=== PATIENT | male | born 1935 | race Caucasian/White ===

== ENCOUNTER → 2016-03-16 | Outpatient (CLI) | payer BC ==
[~2016-03-16] MED LIST: ADVIN25/60 INH; ALBU2SYP9 INH; ALBUAER INH; ATOR10TA82 PO; BICA50TA2 PO; CETI10TA84 PO; CLR10 PO; CYAN1CAP3 PO; DONE5TAB9 PO; DXY100 PO; FINA5TAB PO; FLUT0.15 NAE; FRS/40 PO; IPRASOL4 INH; LEUP30IN3 IM; MAGN30TA4 PO; MAGN400T6 PO; MCRK20 PO; METH1CHW PO; METO2.5T PO; METO25TA3 PO; MIRT15TA2 PO; OPTIRAY 320 IV PRN; OXYC-57 PO; PANT40TA PO; POTA1POW PO; POTA20TA16 PO; PRED10TA PO; PROP150T PO; SPRIN INH; SYMIN160 INH; TAMS0.4C38 PO; THIA100T11 PO; VTMD1000 PO; [UNRECOGNIZED DRUG - CODE] PO
--- NOTE | 2016-03-16 19:22 | DIAGNOSTIC IMAGING REPORT ---
CT OF THE CHEST WITH IV CONTRAST CLINICAL HISTORY: Right middle lobe nodule. Metastatic prostate cancer. COMPARISON STUDY: PET/CT December 07, 2015 and bone scan February 08, 2016 TECHNIQUE: Following IV administration of 93 mL of Optiray-320, helical axial images of the chest were obtained. Images were viewed in the axial, sagittal and coronal planes. IV contrast was administered without complication. CT DOSE: 886.79 mGy.cm FINDINGS: No enlarged axillary, mediastinal or hilar lymph nodes are present. The heart is mildly enlarged. The central airways are patent. There is diffuse bronchial wall thickening. There is moderate emphysema. Note is made of a 1.5 cm irregular predominantly linear right middle lobe nodule shown on axial image 171 of 346. This area was not well visualized on the provided CT images from the PET/CT of December 09, 2015. There has been interval development of a 2.6 cm focus of suspected fluid within the medial basilar segment of the left lower lobe. Left upper lobe subpleural opacity likely reflects atelectasis or scarring. There is mild diffuse bronchial wall thickening. No pneumothorax or pleural effusion is present. Note is again made of the destructive lesion involving the posterior elements at the T4 and T5 levels. Evaluation for treatment response difficult by CT. There is increased sclerosis of the bones. A healing left ninth rib fracture is noted. A gallstone is noted within the gallbladder. IMPRESSION: 1. Redemonstration of the destructive lesion involving the posterior elements at the T4 and T5 levels suggestive of metastatic disease. Evaluation for treatment response by CT is difficult although there is increased sclerosis of the affected bones. 2. Healing posterior left ninth rib fracture. 3. 1.5 cm irregular right middle lobe nodule which is predominantly linear. This is indeterminate. A chest CT in 6 months to ensure stability is recommended. 4. Moderate emphysema. 5. Interval development of a focus of fluid within the left lower lobe is likely post infectious. This can be assessed on subsequent exam. Electronically signed by: Reyes Oreilly M.D. 03/16/2016 7:21 PM Dictated Date/Time: 03/16/2016 10:14 AM
== END | disposition home or self-care (01) ==
LOC: C.CTS 08:27
PROVIDERS: ATTEND Internal Medicine Hematology & Oncology
DX: C61 Malignant neoplasm of prostate (principal); M89.9 Disorder of bone, unspecified; M84.48XA Pathological fracture, other site, initial encounter for fracture; R91.1 Solitary pulmonary nodule; J43.9 Emphysema, unspecified; R91.8 Other nonspecific abnormal finding of lung field

== ENCOUNTER 2016-08-04 18:48 | Inpatient (IN) | payer BC, OTHER ==
[~2016-08-04] VITALS: Ht 175.3 cm; Wt 112.4 kg
[~2016-08-04 18:48] MED LIST changes: -CLR10 PO; -CYAN1CAP3 PO; -DXY100 PO; -FLUT0.15 NAE; -LEUP30IN3 IM; -MAGN30TA4 PO; -MCRK20 PO; -METO2.5T PO; -MIRT15TA2 PO; -OPTIRAY 320 IV PRN; -OXYC-57 PO; -POTA20TA16 PO; -PRED10TA PO; -PROP150T PO; -SPRIN INH; -THIA100T11 PO; -VTMD1000 PO
[2016-08-04] MEDS ORDERED: ONDANSETRON INJ 2 MG/ML 2 ML VIAL IV PRN (21:00)
[2016-08-04] MEDS ORDERED: POLYETHYLENE (MIRALAX) 17 GM PACK PO PRN ×2 (21:00)
[2016-08-04] MEDS ORDERED: MAGNESIUM HYDROXIDE SUSP 30 ML UDC PO PRN (21:00)
[2016-08-04] MEDS ORDERED: HYDROmorphone INJ 1 MG/ML SYR IV PRN (21:00)
[2016-08-04] MEDS ORDERED: ACETAMINOPHEN 325 MG TAB PO PRN (21:00)
[2016-08-04] MEDS ORDERED: ALUMINUM/MAGNESIUM/SIMETH (MAALOX MAX) 30 ML UDC PO PRN (21:00)
[2016-08-04 21:22] VITALS: BP 124/60; PULSE 59; TEMP 36.5; O2SAT 92
[2016-08-04 21:23] VITALS: BMI 37.0
[2016-08-04 23:21] VITALS: BP 99/53; PULSE 66; TEMP 36.3; O2SAT 96
[2016-08-05] VITALS (8 sets, daily range): BP systolic 84–121; BP diastolic 51–70; PULSE 54–79; TEMP 36.3–36.8; O2SAT 91–96; BMI 37.0
--- NOTE | 2016-08-05 06:39 | History and Physical ---
History & Physical Date & Time of Service: August 05, 2016 at 06:18 Chief Complaint: Intractable Back Pain, Mestatic Prostate Ca, Primary Care Physician: Josué Jung D.O. History of Present Illness Source: patient, hospital records, other 81 y/o M Hx metastatic prostate CA , chronic back pain, COPD, PAF, DM. 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 Pt presented to [facility] earlier in the day complaining of progressive lower back pain and resultant gait impairment. He does not describe acute weakness or numbness. A Lumbar MRI was obtained revealing L3-4, L4-5, L5-S1 stenosis in addition to a possible pars fracture at L5. The pts MD and oncologist were contacted and requested that he be transferred to [facility] for further evaluation. He denies CP, SOB, N/V, fevers. Past Medical/Surgical History 1) PAF 2) C diff 3) CHF - no details on record Social History Smoking Status: Former Smoker Multi-Drug Resistant Organisms History of MDRO: No Allergies Coded Allergies: No Known Allergies (Verified , 04/24/02) Home Medications Scheduled Albuterol Sulf (Ventolin), 1 APPLN INH QID Atorvastatin (Lipitor), 1 TAB PO HS Bicalutamide (Casodex), 1 TAB PO DAILY Budesonide/Formoterol Fumarate (Symbicort 160/4.5 Inhaler ), 2 PUFFS INH BID Cetirizine (Zyrtec), 10 MG PO DAILY Donepezil HCl (Aricept), 1 TAB PO HS Finasteride (Proscar), 1 TAB PO DAILY Fluticasone Prop/Salmeterol (Advair Diskus 250/50 60 Dose), 1 PUFFS INH BID Furosemide (Lasix), 40 MG PO DAILY Ipratropium-Albuterol (Duoneb), 1 TREATMENT INH Q4H Magnesium Oxide (Mag-Ox), 400 MG PO BID Methylcobalamin (Y88-[id number]), 1 CAP PO DAILY Metoprolol Succ (Toprol Xl) (Toprol-Xl), 25 MG PO DAILY Pantoprazole (Protonix), 40 MG PO DAILY Potassium Chloride Pwd (Klor-Con Pwd), 1 TAB PO DAILY Propafenone Hcl (Rythmol), 150 MG PO TID Tamsulosin Hcl (Flomax), 1 CAP PO DAILY Scheduled PRN Albuterol Sulfate (Proventil Hfa), 2 PUFF INH TID PRN for Shortness of Breath Review of Systems Constitutional: No chills, No fever, No sweats Eyes: No eye pain, No worsening of vision ENT: No hearing loss, No nasal symptoms, No unusual epistaxis Respiratory: + shortness of breath (chronic), No cough, No sputum, No wheezing Cardiovascular: No PND, No chest pain, No orthopnea Abdomen: No nausea, No pain, No vomiting Musculoskeletal: + joint pain, + muscle pain, + problem reported (moderate to severe LBP) Genitourinary - Male: No dysuria, No hematuria, No urinary frequency, No urinary urgency Neurologic: No memory loss, No paralysis, No weakness Psychiatric: No depression symptoms Endocrine: No fatigue Hematologic / Lymphatic: No abnormal bleeding/bruising Integumentary: No rash Allergic / Immunologic: No environmental allergies Physical Exam Vital Signs Date Time Temp Pulse Resp B/P Pulse Ox O2 Delivery O2 Flow Rate FiO2 08/05/16 04:15 36.5 61 20 103/57 96 Room Air 08/05/16 01:44 36.3 66 18 99/53 96 Nasal Cannula 4.0 08/04/16 23:21 36.3 66 18 99/53 96 Nasal Cannula 4.0 08/04/16 21:22 36.5 59 20 124/60 92 Nasal Cannula 4.0 General Appearance: WD/WN, no apparent distress Head: normocephalic, atraumatic Eyes: normal inspection, PERRL, EOMI ENT: normal ENT inspection, pharynx normal Neck: supple, no JVD Respiratory/Chest: chest non-tender, no respiratory distress, no accessory muscle use, + decreased breath sounds Cardiovascular: regular rate, rhythm, + systolic murmur Abdomen/GI: normal bowel sounds, non tender, soft Back: + pertinent finding (No significant pain to palpation - ROM limited by pain ) 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 Pt presented to [facility] earlier in the day complaining of progressive lower back pain and resultant gait impairment. He does not describe acute weakness or numbness. A Lumbar MRI was obtained revealing L3-4, L4-5, L5-S1 stenosis in addition to a possible pars fracture at L5. The pts MD and oncologist were contacted and requested that he be transferred to [facility] for further evaluation. He denies CP, SOB, N/V, fevers. 1) Worsening back pain - likely related to CA - Pt will be treated symptomatically and we will consult his oncologist reg additional treatment options. He may need an ortho consult or transfer to rehab. Would request PT following evaluation. 2) Met prostate CA - was previously on Casodex and Xgeva - H/O consulted 3) Hx CHF - currently euvolemic - cont B sonia , Lasix 4) PAF - sinus rhythm on arrival - cont Propafenone 5) COPD - no evidence of acute exacerbation - cont prescribed inhalers Full code - Heparin prophylaxis Total time for this admit including review of outside records, kabs, meds, imaging - discussion with pt - 38 min Level of Care Med/Surg Advanced Directives Existing Living Will: Yes Existing Power of Customer Engagement Manager: Yes Resuscitation Status FULL RESUSCITATION VTE Prophylaxis VTE Risk Assessment Done? Y/N: Yes Risk Level: Moderate Given or contraindicated: Unfractionated heparin SQ
[2016-08-05] MEDS ORDERED: POTASSIUM CHLORIDE 20 MEQ TABCR PO SCH (08:00)
[2016-08-05] MEDS ORDERED: FLUTICASONE/SALMETEROL 250/50 (ADVAIR) 14 PUFF/1 INHALER INH SCH (08:00)
[2016-08-05 08:25] LABS: HEMATOCRIT 36.2 % (42-52); MEAN CELL VOLUME 88.9 fL (80-100); MEAN CORPUSCULAR HEMOGLOBIN 30.7 pg (25-34); MEAN CORPUSCULAR HGB CONC 34.5 g/dl (32-36); MEAN PLATELET VOLUME 10.4 fL (7.4-10.4); PLATELET COUNT 129 K/uL (130-400); RED BLOOD COUNT 4.07 M/uL (4.7-6.1); WHITE BLOOD COUNT 8.57 K/uL (4.8-10.8)
[2016-08-05 08:40] LABS: INR 1.1 (0.9-1.1); PARTIAL THROMBOPLASTIN RATIO 1.2; PROTHROMBIN TIME (PATIENT) 11.4 SECONDS (9.0-12.0)
[2016-08-05] MEDS: FINASTERIDE 5 MG TAB PO SCH (08:48)
[2016-08-05] MEDS: CETIRIZINE HCL 10 MG TAB PO SCH (08:49)
[2016-08-05] MEDS: PANTOprazole SOD 40 MG TAB PO SCH (08:49)
[2016-08-05] MEDS: POTASSIUM CHLORIDE PWD 20 MEQ PACK PO SCH (08:50)
[2016-08-05] MEDS: FUROSEMIDE 40 MG TAB PO SCH (08:50)
[2016-08-05] MEDS: MAGNESIUM OXIDE 400 MG TAB PO SCH ×2 (08:50→20:39)
[2016-08-05] MEDS: TAMSULOSIN HCL 0.4 MG CAP PO SCH (08:57)
[2016-08-05] MEDS: BICALUTAMIDE 50 MG TAB PO SCH (08:57)
[2016-08-05] MEDS: METOPROLOL SUCC 25MG EXT REL TAB PO SCH (08:57)
[2016-08-05] MEDS: BUDESONIDE/FORMOTEROL FUMARATE 160/4.5 60 PUFFS/INHALER INH SCH ×2 (09:01→20:38)
[2016-08-05] MEDS: PROPAFENONE HCL 150 MG TAB PO SCH ×3 (09:01→20:38)
[2016-08-05] MEDS ORDERED: CETIRIZINE HCL 10 MG TAB PO ONE (09:15)
--- NOTE | 2016-08-05 10:40 | Progress Note ---
Subjective Date of Service: August 05, 2016. Subjective Pt evaluation today including: conversation w/ patient, physical exam, chart review, lab review, review of studies, review of inpatient medication list Sitting up in chair, eating breakfast, reported the pain has been significantly better, the pain is 0 out of 10, no other complaint, no diarrhea constipation Review of Systems Constitutional: No chills, No fatigue, No fever, No problem reported, No sweats , No weakness, No weight loss Eyes: No diplopia, No discharge, No eye pain, No redness, No worsening of vision ENT: No dental problems, No hearing loss, No nasal symptoms, No sore throat, No tinnitus, No trouble swallowing, No unusual epistaxis Respiratory: No cough, No dyspnea at rest, No dyspnea on exertion, No hemoptysis, No shortness of breath, No sputum, No wheezing Cardiac: No PND, No chest pain, No claudication, No edema, No orthopnea, No palpitations Abdomen: No constipation, No diarrhea, No nausea, No pain, No vomiting Musculoskeletal: No calf pain, No joint pain, No muscle pain, No swelling Male : No dysuria, No hematuria, No incontinence, No nocturia more than once/ night, No slowing stream, No urinary frequency Neurologic: No balance problems, No memory loss, No numbness/tingling, No paralysis, No vertigo, No weakness Psychiatric: No anhedonism, No anxiety, No depression symptoms, No insomnia, No substance abuse Heme: No abnormal bleeding/bruising, No clotting problems, No night sweats, No swollen lymph nodes Endo: No excessive thirst, No excessive urination, No fatigue Skin: No bleeding, No color change, No itch, No new/changing skin lesions, No rash Objective Vital Signs Date Time Temp Pulse Resp B/P Pulse Ox O2 Delivery O2 Flow Rate FiO2 08/05/16 08:45 79 105/70 08/05/16 07:14 36.6 54 20 92/60 94 Nasal Cannula 2.0 08/05/16 04:15 36.5 61 20 103/57 96 Room Air 08/05/16 01:44 36.3 66 18 99/53 96 Nasal Cannula 4.0 08/04/16 23:21 36.3 66 18 99/53 96 Nasal Cannula 4.0 08/04/16 21:22 36.5 59 20 124/60 92 Nasal Cannula 4.0 Physical Exam General Appearance: WD/WN, no apparent distress, + obese, + pertinent finding ( pleasant and conversational) Eyes: normal inspection, PERRL, EOMI, sclerae normal ENT: normal ENT inspection, hearing grossly normal, pharynx normal Neck: supple, no adenopathy, thyroid normal, no JVD, no carotid bruits, trachea midline Respiratory/Chest: chest non-tender, normal breath sounds, no respiratory distress, no accessory muscle use, + decreased breath sounds Cardiovascular: regular rate, rhythm, no edema, no gallop, no JVD, no murmur Abdomen: normal bowel sounds, non tender, soft, no organomegaly, no pulsatile mass Extremities: non-tender, normal inspection, no pedal edema, no calf tenderness , normal capillary refill, pelvis stable, + pertinent finding (low back spine was was tender in press) 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, no motor/sensory deficits, alert, normal mood/affect, oriented x 3 Skin: normal color, warm/dry, no rash Lymphatic: no adenopathy Laboratory Results Last 24 Hours Test 08/05/16 08:20 White Blood Count 8.57 K/uL Red Blood Count 4.07 M/uL Hemoglobin 12.5 g/dL Hematocrit 36.2 % Mean Corpuscular Volume 88.9 fL Mean Corpuscular Hemoglobin 30.7 pg Mean Corpuscular Hemoglobin Concent 34.5 g/dl RDW Standard Deviation 39.1 fL RDW Coefficient of Variation 12.1 % Platelet Count 129 K/uL Mean Platelet Volume 10.4 fL Prothrombin Time 11.4 SECONDS Prothromb Time International Ratio 1.1 Activated Partial Thromboplast Time 32.2 SECONDS Partial Thromboplastin Ratio 1.2 Assessment and Plan 81 y/o M Pt transferred from [facility] because of A Lumbar MRI was obtained revealing L3-4, L4-5, L5-S1 stenosis in addition to a possible pars fracture at L5. The pts MD and oncologist were contacted and requested that he be transferred to [facility] for further evaluation. Lower back pain with L3-4, L4-5, L5-S1 stenosis in addition to a possible pars fracture at L5, and possible from prostate cancer metastasis Significant improving today, we'll continue pain control PT OT Patient did not report any weakness or numbness. Will follow-up oncologist Ortho consult if needed Continue PT OT Possible need rehabilitation prostate CA -metastasis previously on Casodex and Xgeva We'll follow a hematology oncology consultation Hx metastatic prostate CA , chronic back pain, COPD, PAF: Stable we'll continue current care Diabetic we'll continue home medication, check HbA1c, insulin sliding scale, diabetic diet Full code Heparin prophylaxis Continued [facility] stay due to: multiple IV medications needed Discharge planning: uncertain
--- NOTE | 2016-08-05 10:50 | Oncology Consultation ---
Oncology/Heme Consultation Date of Consultation: August 05, 2016. Attending Physician: Gilson Lara MD, PhD Reason for Consultation: History of prostate cancer History of Present Illness Mr. Lizama is a 81-year-old gentleman with a history of biopsy-proven bony metastatic disease, prostate adenocarcinoma. He has been treated with complete androgen blockade. He presented last evening with bone pain. He demonstrates the pain to be more in the lower thoracic area. An MRI done at [facility] of the lumbar spine showed degenerative changes primarily. No films have been done of the thoracic spine. He denies any incontinence. He has good strength in his lower extremities. I should note that his PSAs have been drifting down since the initiation of the androgen blockade. He states that this pain became rather severe and happened suddenly yesterday. He has not had back pain prior to this. He initially presented in 2014 with the lower urinary tract symptoms and a prostate nodule was found. Soon after that he sustained a fall and was found to have a bone lesion in the thoracic spine area. A biopsy in December 2015 revealed metastatic poorly differentiated adenocarcinoma consistent with a prostate primary and he started complete androgen blockade in January 2016. 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 Social History Smoking Status: Former Smoker Allergies Coded Allergies: No Known Allergies (Verified , 04/24/02) Home Medications Scheduled Albuterol Sulf (Ventolin), 1 APPLN INH QID Atorvastatin (Lipitor), 1 TAB PO HS Bicalutamide (Casodex), 1 TAB PO DAILY Budesonide/Formoterol Fumarate (Symbicort 160/4.5 Inhaler ), 2 PUFFS INH BID Cetirizine (Zyrtec), 10 MG PO DAILY Donepezil HCl (Aricept), 1 TAB PO HS Finasteride (Proscar), 1 TAB PO DAILY Fluticasone Prop/Salmeterol (Advair Diskus 250/50 60 Dose), 1 PUFFS INH BID Furosemide (Lasix), 40 MG PO DAILY Ipratropium-Albuterol (Duoneb), 1 TREATMENT INH Q4H Magnesium Oxide (Mag-Ox), 400 MG PO BID Methylcobalamin (I83-[id number]), 1 CAP PO DAILY Metoprolol Succ (Toprol Xl) (Toprol-Xl), 25 MG PO DAILY Pantoprazole (Protonix), 40 MG PO DAILY Potassium Chloride Pwd (Klor-Con Pwd), 1 TAB PO DAILY Propafenone Hcl (Rythmol), 150 MG PO TID Tamsulosin Hcl (Flomax), 1 CAP PO DAILY Scheduled PRN Albuterol Sulfate (Proventil Hfa), 2 PUFF INH TID PRN for Shortness of Breath Current Inpatient Medications Current Inpatient Medications Medications (Trade) Dose Ordered Sig/Reji Route Start Time Stop Time Status Last Admin Dose Admin Acetaminophen (Tylenol Tab) 650 mg Q4H PRN PO 08/04/16 21:00 09/03/16 20:59 Al Hydrox/Mg Hydrox/Simethicone (Maalox Max Susp) 15 ml Q4H PRN PO 08/04/16 21:00 09/03/16 20:59 Magnesium Hydroxide (Milk Of Magnesia Susp) 30 ml Q6H PRN PO 08/04/16 21:00 09/03/16 20:59 Ondansetron HCl (Zofran Inj) 4 mg Q6H PRN IV 08/04/16 21:00 09/03/16 20:59 Hydromorphone HCl (Dilaudid Inj) 0.5 mg Q2H PRN IV 08/04/16 21:00 08/18/16 20:59 Polyethylene (Miralax Powder Packet) 17 gm DAILY PRN PO 08/04/16 21:00 09/03/16 20:59 Atorvastatin Calcium (Lipitor Tab) 10 mg HS PO 08/05/16 21:00 09/04/16 20:59 Bicalutamide (Casodex Tab) 50 mg DAILY PO 08/05/16 08:00 09/04/16 07:59 08/05/16 08:57 50 MG Budesonide/ Formoterol Fumarate (Symbicort 160/ 4.5 Inh) 2 puffs BID INH 08/05/16 08:00 09/04/16 07:59 08/05/16 09:01 2 PUFFS Cetirizine HCl (zyrTEC TAB) 10 mg DAILY PO 08/05/16 08:00 09/04/16 07:59 08/05/16 08:49 10 MG Donepezil HCl (Aricept Tab) 5 mg HS PO 08/05/16 21:00 09/04/16 20:59 Finasteride (Proscar Tab) 5 mg DAILY PO 08/05/16 08:00 09/04/16 07:59 08/05/16 08:48 5 MG Furosemide (Lasix Tab) 40 mg DAILY PO 08/05/16 08:00 09/04/16 07:59 08/05/16 08:50 40 MG Magnesium Oxide (Mag-Ox Tab) 400 mg BID PO 08/05/16 08:00 09/04/16 07:59 08/05/16 08:50 400 MG Metoprolol Succinate (Toprol Xl Tab) 25 mg DAILY PO 08/05/16 08:00 09/04/16 07:59 08/05/16 08:57 25 MG Pantoprazole Sodium (Protonix Tab) 40 mg DAILY PO 08/05/16 08:00 09/04/16 07:59 08/05/16 08:49 40 MG Potassium Chloride (Klor-Con Pwd) 20 meq DAILY PO 08/05/16 08:00 09/04/16 07:59 08/05/16 08:50 20 MEQ Tamsulosin HCl (Flomax Cap) 0.4 mg DAILY PO 08/05/16 08:00 09/04/16 07:59 08/05/16 08:57 0.4 MG Propafenone HCl (Rythmol Tab) 150 mg TID PO 08/05/16 08:00 09/04/16 07:59 08/05/16 09:01 150 MG Heparin Sodium (Porcine) (Heparin Sq 5000 Unit/0.5ml) 5,000 unit Q8 SQ 08/05/16 14:00 09/04/16 13:59 Fluticasone Propionate (Flonase Nasal Joice) 1 sprays Q12 NA 08/05/16 21:00 09/04/16 20:59 Review of Systems Constitutional: Negative for weight loss, night sweats, or fever Eyes: Negative for event change of vision ENT: Negative for epistaxis, nasal discharge, sore throat, or deafness Cardiovascular: Negative for chest pain, palpitations, dizziness, diaphoresis Respiratory: Negative for new shortness of breath,hemoptysis, or purulent cough Gastrointestinal: Negative for diarrhea, hematemesis, melena, nausea, vomiting , or dyspepsia Integumentary (skin): Negative for rash or jaundice discoloration Genitourinary: Negative for urinary frequency, hematuria, or dysuria Neurological: Negative for weakness, seizure activity, headache, or dizziness Lymphatic/Hematologic: Negative for petechiae, bleeding or new adenopathy Musculoskeletal: Positive for back pain and primarily the lower thoracic area radiating anteriorly around T7, T8 Allergic/Immunologic: Negative for unusual rash or pruritis. Physical Exam Date Time Temp Pulse Resp B/P Pulse Ox O2 Delivery O2 Flow Rate FiO2 08/05/16 08:45 79 105/70 08/05/16 07:14 36.6 54 20 92/60 94 Nasal Cannula 2.0 08/05/16 04:15 36.5 61 20 103/57 96 Room Air 08/05/16 01:44 36.3 66 18 99/53 96 Nasal Cannula 4.0 08/04/16 23:21 36.3 66 18 99/53 96 Nasal Cannula 4.0 08/04/16 21:22 36.5 59 20 124/60 92 Nasal Cannula 4.0 Constitutional: vitals are stable. Eyes: Eyes are MIKAL EOMI without conjuctival erythema or icterus. ENT: External examination was negative for masses. Neck: Negative for masses or palpable thyromegaly Respiratory: Lung sounds were generally clear bilaterally Cardiovascular: Heart was RRR without significant murmur, gallops aoe rubs Gastrointestinal: No palpable hepatic or splenomegaly. The abdomen was soft with normal bowel sounds. Lymphatic system: there was no palpable peripheral lymphadenopathy Musculoskeletal System: The musculoskeletal system seemed concordant with age. Skin: The skin was negative for jaundice. Some skin changes distally in the lower areas consistent with chronic vascular disease Neurologic exam: The exam was negative for any focal findings. Deep tendon reflexes were equal and symmetrical. Psychiatric exam: Was essentially negative with normal mood and effect. Extremities: Negative for edema or erythema Laboratory Results Last 24 Hours Test 08/05/16 08:20 White Blood Count 8.57 K/uL Red Blood Count 4.07 M/uL Hemoglobin 12.5 g/dL Hematocrit 36.2 % Mean Corpuscular Volume 88.9 fL Mean Corpuscular Hemoglobin 30.7 pg Mean Corpuscular Hemoglobin Concent 34.5 g/dl RDW Standard Deviation 39.1 fL RDW Coefficient of Variation 12.1 % Platelet Count 129 K/uL Mean Platelet Volume 10.4 fL Prothrombin Time 11.4 SECONDS Prothromb Time International Ratio 1.1 Activated Partial Thromboplast Time 32.2 SECONDS Partial Thromboplastin Ratio 1.2 Assessment & Plan Metastatic prostate carcinoma with metastatic disease to bone undergoing therapy with androgen blockade. Now presents with rather severe sudden lower thoracic bone pain. Blood work is acceptable PSA will need to be updated. I would suggest that an MRI be done of his thoracic spine. We'll follow along with you. He appears rather comfortable right now. Neurologically he appears intact.
[2016-08-05] MEDS ORDERED: OXYCODONE/ACETAMINOPHEN 5-325 TAB ONE (11:54)
[2016-08-05] MEDS ORDERED: NURSING VERBAL MED ORDER ONE ×3 (12:00→19:30)
[2016-08-05] MEDS ORDERED: OXYCODONE/ACETAMINOPHEN 5-325 TAB PO PRN (12:00)
[2016-08-05 12:42] LABS: BUN/CREATININE RATIO 19.8 (10-20); CALCIUM 8.4 mg/dl (8.5-10.1); CREATININE 1.5 mg/dl (0.60-1.40); POTASSIUM 3.1 mmol/L (3.5-5.1)
[2016-08-05] MEDS: HEPARIN SOD 5000 UNIT/0.5 ML CARP SQ SCH ×2 (12:58→21:35)
[2016-08-05] MEDS ORDERED: POTASSIUM CHLORIDE 20 MEQ TABCR PO ONE (20:15)
--- NOTE | 2016-08-05 20:17 | DIAGNOSTIC IMAGING REPORT ---
MRI OF THE CERVICAL SPINE COMBO CLINICAL HISTORY: Metastatic prostate cancer. Back pain. COMPARISON STUDY: CT scan of the chest dated 03/16/2016. TECHNIQUE: MRI of the thoracic spine is performed utilizing various T1 and T2-weighted sequences in the axial and sagittal planes. Contrast-enhanced sequences are acquired following the IV administration of 10 mL of Gadavist. FINDINGS: Marrow signal intensity is markedly heterogeneous. Vertebral body height and alignment are maintained throughout the thoracic spine. There is no MRI evidence of acute fracture. There is unchanged appearance of a large metastatic lesion within the spinous process of T4. This involves the lamina as well as the left transverse process. There is no soft tissue component identified encroaching upon the central canal. There is an additional lesion versus a Schmorl's node seen within the superior endplate of T4. Additional small lesions are present throughout the spine. Lesions are clearly seen within the bodies of C5, T6, T7, T9, T10, T11, T12, and L1. A lesion is also seen within the spinous process of T1. Several posterior rib lesions are identified. Multilevel degenerative disc desiccation and loss of height are identified. There are numerous tiny posterior disc bulges. No large disc herniation is seen and there is no significant acquired compromise of the central canal. No high-grade neural foraminal stenosis is identified. The thoracic spinal cord is normal in morphology and signal intensity. The conus medullaris terminates at the level of L1. No abnormal cord enhancement is identified. The lung parenchyma is grossly clear but not well assessed MRI. The paraspinous soft tissues are within normal limits noting fatty atrophy of the paraspinous musculature. IMPRESSION: 1. Multifocal osseous metastatic disease is identified and detailed above. This has likely not significantly changed from the 03/16/[address] More lesions are identified by MRI, likely due to the increased sensitivity of this modality. 2. There is no clear MRI evidence of pathologic fracture. 3. There is no disc herniation or evidence of acquired compromise of the central canal. Dictated: 08/05/2016 6:04 PM Transcribed: 08/05/2016 8:17 PM Yolanda Electronically signed by: Jacob Rivera M.D. 08/05/2016 8:30 PM Dictated Date/Time: 08/05/2016 6:04 PM
[2016-08-05] MEDS: FLUTICASONE PROPIONATE NA SPR 16 GM BTL SCH (20:40)
[2016-08-05] MEDS: DONEPEZIL HCL 5 MG TAB PO SCH (20:41)
[2016-08-05] MEDS: ATORVASTATIN 10 MG TAB PO SCH (20:41)
[2016-08-06 05:54] LABS: BASO % 0.1 %; BASO ABS # 0.01 K/uL (0-0.2); COMPLETE YES; EOS % 5.4 %; HEMATOCRIT 34.8 % (42-52); IG% 0.6 %; LYMPH % 27.9 %; LYMPH ABS # 1.87 K/uL (1.2-3.4); MEAN CELL VOLUME 90.4 fL (80-100); MEAN CORPUSCULAR HEMOGLOBIN 29.9 pg (25-34); MEAN PLATELET VOLUME 11.4 fL (7.4-10.4); MONO % 14.2 %; NEUT % 51.8 %; PLATELET COUNT 125 K/uL (130-400); RED BLOOD COUNT 3.85 M/uL (4.7-6.1); WHITE BLOOD COUNT 6.71 K/uL (4.8-10.8)
[2016-08-06] MEDS: HEPARIN SOD 5000 UNIT/0.5 ML CARP SQ SCH ×3 (06:18→21:26)
[2016-08-06 06:25] VITALS: BMI 37.2
[2016-08-06 06:26] LABS: BUN/CREATININE RATIO 22.5 (10-20); CALCIUM 8.1 mg/dl (8.5-10.1); CREATININE 1.5 mg/dl (0.60-1.40); MAGNESIUM 2.3 mg/dl (1.8-2.4)
[2016-08-06 07:21] VITALS: BP 93/56; PULSE 58; TEMP 36.5; O2SAT 94
[2016-08-06] MEDS ORDERED: CETIRIZINE HCL 10 MG TAB PO SCH (08:00)
[2016-08-06] MEDS: METOPROLOL SUCC 25MG EXT REL TAB PO SCH (08:00)
[2016-08-06] MEDS: PROPAFENONE HCL 150 MG TAB PO SCH ×3 (08:17→20:13)
[2016-08-06] MEDS: MAGNESIUM OXIDE 400 MG TAB PO SCH ×2 (08:17→20:13)
[2016-08-06] MEDS: FUROSEMIDE 40 MG TAB PO SCH (08:18)
[2016-08-06] MEDS: CETIRIZINE HCL 10 MG TAB PO SCH (08:18)
[2016-08-06] MEDS: POTASSIUM CHLORIDE PWD 20 MEQ PACK PO SCH (08:19)
[2016-08-06] MEDS: BICALUTAMIDE 50 MG TAB PO SCH (08:19)
[2016-08-06] MEDS: TAMSULOSIN HCL 0.4 MG CAP PO SCH (08:19)
[2016-08-06] MEDS: PANTOprazole SOD 40 MG TAB PO SCH (08:19)
[2016-08-06] MEDS: FINASTERIDE 5 MG TAB PO SCH (08:19)
[2016-08-06] MEDS: BUDESONIDE/FORMOTEROL FUMARATE 160/4.5 60 PUFFS/INHALER INH SCH ×2 (08:19→19:46)
[2016-08-06] MEDS: FLUTICASONE PROPIONATE NA SPR 16 GM BTL SCH ×2 (08:21→20:13)
--- NOTE | 2016-08-06 10:32 | Hematology/Oncology Prog Note ---
Hematology/Onc Progress Note Date of Service August 06, 2016. Diagnoses Metastatic prostate carcinoma Back pain Medications Medications Administered Medications (Trade) Dose Ordered Sig/Reji Route Start Time Stop Time Status Last Admin Dose Admin Atorvastatin Calcium (Lipitor Tab) 10 mg HS PO 08/05/16 21:00 09/04/16 20:59 08/05/16 20:41 10 MG Bicalutamide (Casodex Tab) 50 mg DAILY PO 08/05/16 08:00 09/04/16 07:59 08/06/16 08:19 50 MG Budesonide/ Formoterol Fumarate (Symbicort 160/ 4.5 Inh) 2 puffs BID INH 08/05/16 08:00 09/04/16 07:59 08/06/16 08:19 2 PUFFS Cetirizine HCl (zyrTEC TAB) 10 mg DAILY PO 08/05/16 08:00 09/04/16 07:59 08/06/16 08:18 10 MG Donepezil HCl (Aricept Tab) 5 mg HS PO 08/05/16 21:00 09/04/16 20:59 08/05/16 20:41 5 MG Finasteride (Proscar Tab) 5 mg DAILY PO 08/05/16 08:00 09/04/16 07:59 08/06/16 08:19 5 MG Furosemide (Lasix Tab) 40 mg DAILY PO 08/05/16 08:00 09/04/16 07:59 08/06/16 08:18 40 MG Magnesium Oxide (Mag-Ox Tab) 400 mg BID PO 08/05/16 08:00 09/04/16 07:59 08/06/16 08:17 400 MG Metoprolol Succinate (Toprol Xl Tab) 25 mg DAILY PO 08/05/16 08:00 09/04/16 07:59 08/05/16 08:57 25 MG Pantoprazole Sodium (Protonix Tab) 40 mg DAILY PO 08/05/16 08:00 09/04/16 07:59 08/06/16 08:19 40 MG Potassium Chloride (Klor-Con Pwd) 20 meq DAILY PO 08/05/16 08:00 09/04/16 07:59 08/06/16 08:19 20 MEQ Tamsulosin HCl (Flomax Cap) 0.4 mg DAILY PO 08/05/16 08:00 09/04/16 07:59 08/06/16 08:19 0.4 MG Propafenone HCl (Rythmol Tab) 150 mg TID PO 08/05/16 08:00 09/04/16 07:59 08/06/16 08:17 150 MG Heparin Sodium (Porcine) (Heparin Sq 5000 Unit/0.5ml) 5,000 unit Q8 SQ 08/05/16 14:00 09/04/16 13:59 08/06/16 06:18 5,000 UNIT Fluticasone Propionate (Flonase Nasal Collbran) 1 sprays Q12 NA 08/05/16 21:00 09/04/16 20:59 08/06/16 08:21 1 SPRAYS Oxycodone/ Acetaminophen (Percocet 5-325mg Tab) 1 tab STK-MED ONCE .ROUTE 08/05/16 11:54 08/05/16 11:55 DC 08/05/16 11:55 1 TAB Potassium Chloride (Klor-Con Tab) 40 meq TODAY@2014 ONCE PO 08/05/16 20:15 08/05/16 20:16 DC 08/05/16 20:40 40 MEQ Subjective Continues to have back pain. He is a difficult historian and it's hard to interpret his review of systems but clearly he complains mostly of back pain that is elicited with pressure over around T7 or T8. Review of Systems: Constitutional: Negative for night sweats, or fever Eyes: Negative for event change of vision ENT: Negative for epistaxis, nasal discharge, sore throat, or deafness Cardiovascular: Negative for chest pain, palpitations, dizziness, diaphoresis Respiratory: Negative for new shortness of breath however he does admit to some shortness of breath but it seems to wax and wane and not very acute. I'm not able to really get any definite history of pleuritic chest pain although sometimes he does complain of pain in the lower left anterior thoracic area likely radicular more than anything. Negative for hemoptysis or cough Gastrointestinal: Negative for diarrhea, hematemesis, melena, nausea, vomiting , or dyspepsia Integumentary (skin): Negative for rash or jaundice discoloration Genitourinary: Negative for urinary frequency, hematuria, or dysuria Neurological: Negative for weakness, seizure activity, headache, or dizziness Lymphatic/Hematologic: Negative for petechiae, bleeding or new adenopathy Musculoskeletal: Back pain as reviewed Allergic/Immunologic: Negative for unusual rash or pruritis. Vital Signs Vital Signs Past 12 Hours Date Time Temp Pulse Resp B/P Pulse Ox O2 Delivery O2 Flow Rate FiO2 08/06/16 08:20 Nasal Cannula 2.0 08/06/16 07:21 36.5 58 18 93/56 94 Nasal Cannula 2.0 08/05/16 23:59 Nasal Cannula 2.0 08/05/16 23:40 36.6 62 20 96/58 91 Nasal Cannula 4.0 Physical Exam Constitutional: vitals are stable. Eyes: Eyes are MIKAL EOMI without conjuctival erythema or icterus. ENT: External examination was negative for masses. Neck: Negative for masses or palpable thyromegaly Respiratory: Lung sounds were generally clear bilaterally Cardiovascular: Heart was RRR without significant murmur, gallops aoe rubs Gastrointestinal: No palpable hepatic or splenomegaly. The abdomen was soft with normal bowel sounds. Lymphatic system: there was no palpable peripheral lymphadenopathy Musculoskeletal System: The musculoskeletal system seemed concordant with age. Skin: The skin was negative for jaundice. Neurologic exam: The exam was negative for any focal findings. Deep tendon reflexes were equal and symmetrical. Psychiatric exam: Was essentially negative with normal mood and effect. Extremities: Negative for edema or erythema he does have some stasis changes peripherally in his lower extremities consistent with underlying peripheral vascular disease Laboratory Last 24 Hours Test 08/05/16 11:50 08/06/16 05:15 Sodium Level 136 mmol/L 139 mmol/L Potassium Level 3.1 mmol/L 3.0 mmol/L Chloride Level 94 mmol/L 97 mmol/L Carbon Dioxide Level 36 mmol/L 35 mmol/L Anion Gap 6.0 mmol/L 7.0 mmol/L Blood Urea Nitrogen 30 mg/dl 34 mg/dl Creatinine 1.50 mg/dl 1.50 mg/dl Est Creatinine Clear Calc Drug Dose 48.8 ml/min 49.0 ml/min Estimated GFR () 50.2 50.2 Estimated GFR (Non- 43.3 43.3 BUN/Creatinine Ratio 19.8 22.5 Random Glucose 89 mg/dl 85 mg/dl Calcium Level 8.4 mg/dl 8.1 mg/dl Prostate Specific Antigen 2.250 ng/ml White Blood Count 6.71 K/uL Red Blood Count 3.85 M/uL Hemoglobin 11.5 g/dL Hematocrit 34.8 % Mean Corpuscular Volume 90.4 fL Mean Corpuscular Hemoglobin 29.9 pg Mean Corpuscular Hemoglobin Concent 33.0 g/dl Platelet Count 125 K/uL Mean Platelet Volume 11.4 fL Neutrophils (%) (Auto) 51.8 % Lymphocytes (%) (Auto) 27.9 % Monocytes (%) (Auto) 14.2 % Eosinophils (%) (Auto) 5.4 % Basophils (%) (Auto) 0.1 % Neutrophils # (Auto) 3.48 K/uL Lymphocytes # (Auto) 1.87 K/uL Monocytes # (Auto) 0.95 K/uL Eosinophils # (Auto) 0.36 K/uL Basophils # (Auto) 0.01 K/uL RDW Standard Deviation 40.3 fL RDW Coefficient of Variation 12.3 % Immature Granulocyte % (Auto) 0.6 % Immature Granulocyte # (Auto) 0.04 K/uL Magnesium Level 2.3 mg/dl Assessment & Plan MRI of the thoracic spine shows multiple levels of bone involvement but without fracture or any cord is intact and not impinged. If his shortness of breath should worsen then I suspect a CTA of his chest to be necessary but I don't see that (PE) as a differential now. We then focus on trying to control his pain with pain medicines as you have started. If his back pain continues to be an issue that radiation therapy should be consulted. His PSA is 2.2 which is quite acceptable and better than before.
[2016-08-06] MEDS ORDERED: NURSING VERBAL MED ORDER ONE (11:00)
[2016-08-06 11:06] VITALS: BP 99/63; PULSE 75; TEMP 36.6; O2SAT 91
[2016-08-06] MEDS ORDERED: POTASSIUM CHLORIDE 20 MEQ TABCR PO ONE (11:15)
[2016-08-06] MEDS: POTASSIUM CHLR 10MEQ / WTR IV SCH ×2 (13:20→15:21)
[2016-08-06 14:43] VITALS: BP 103/57; PULSE 59; TEMP 36.5; O2SAT 93
--- NOTE | 2016-08-06 16:39 | Progress Note ---
Subjective Date of Service: August 06, 2016. Subjective Pt evaluation today including: conversation w/ patient, physical exam, chart review, lab review, review of studies, conversation w/ data warehouse consultant, review of inpatient medication list Report lower back pain, has been fairly okay controlled, reported arm pain burning sensation because of getting potassium infusion Has not been out of bed yet today because of getting IV potassium infusion Review of Systems Constitutional: + fatigue, + weakness, No chills, No fever, No problem reported , No sweats, No weight loss Eyes: No diplopia, No discharge, No eye pain, No redness, No worsening of vision ENT: No dental problems, No hearing loss, No nasal symptoms, No sore throat, No tinnitus, No trouble swallowing, No unusual epistaxis Respiratory: No cough, No dyspnea at rest, No dyspnea on exertion, No hemoptysis, No shortness of breath, No sputum, No wheezing Cardiac: No PND, No chest pain, No claudication, No edema, No orthopnea, No palpitations Abdomen: No constipation, No diarrhea, No nausea, No pain, No vomiting Musculoskeletal: + joint pain, No calf pain, No muscle pain, No swelling Male : No dysuria, No hematuria, No incontinence, No nocturia more than once/ night, No slowing stream, No urinary frequency Neurologic: No balance problems, No memory loss, No numbness/tingling, No paralysis, No vertigo, No weakness Psychiatric: No anhedonism, No anxiety, No depression symptoms, No insomnia, No substance abuse Heme: No abnormal bleeding/bruising, No clotting problems, No night sweats, No swollen lymph nodes Endo: No excessive thirst, No excessive urination, No fatigue Skin: No bleeding, No color change, No itch, No new/changing skin lesions, No rash Objective Vital Signs Date Time Temp Pulse Resp B/P Pulse Ox O2 Delivery O2 Flow Rate FiO2 08/06/16 15:41 Nasal Cannula 2.0 08/06/16 14:43 36.5 59 18 103/57 93 Nasal Cannula 2.0 08/06/16 11:06 36.6 75 20 99/63 91 Nasal Cannula 2.0 08/06/16 08:20 Nasal Cannula 2.0 08/06/16 07:21 36.5 58 18 93/56 94 Nasal Cannula 2.0 08/05/16 23:59 Nasal Cannula 2.0 08/05/16 23:40 36.6 62 20 96/58 91 Nasal Cannula 4.0 08/05/16 20:00 Nasal Cannula 2.0 08/05/16 19:37 36.4 74 20 121/69 93 2.0 Physical Exam General Appearance: WD/WN, no apparent distress, + obese Eyes: normal inspection, PERRL, EOMI, sclerae normal ENT: normal ENT inspection, hearing grossly normal, pharynx normal Neck: supple, no adenopathy, thyroid normal, no JVD, no carotid bruits, trachea midline Respiratory/Chest: chest non-tender, normal breath sounds, no respiratory distress, no accessory muscle use, + decreased breath sounds (significant) Cardiovascular: regular rate, rhythm, no edema, no gallop, no JVD, no murmur Abdomen: normal bowel sounds, non tender, soft, no organomegaly, no pulsatile mass Extremities: normal inspection, no pedal edema, no calf tenderness, normal capillary refill, pelvis stable, + pertinent finding (lower back local tender in the spine) 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, no motor/sensory deficits, alert, normal mood/affect, oriented x 3 Skin: normal color, warm/dry, no rash Lymphatic: no adenopathy Laboratory Results Last 24 Hours Test 08/06/16 05:15 White Blood Count 6.71 K/uL Red Blood Count 3.85 M/uL Hemoglobin 11.5 g/dL Hematocrit 34.8 % Mean Corpuscular Volume 90.4 fL Mean Corpuscular Hemoglobin 29.9 pg Mean Corpuscular Hemoglobin Concent 33.0 g/dl Platelet Count 125 K/uL Mean Platelet Volume 11.4 fL Neutrophils (%) (Auto) 51.8 % Lymphocytes (%) (Auto) 27.9 % Monocytes (%) (Auto) 14.2 % Eosinophils (%) (Auto) 5.4 % Basophils (%) (Auto) 0.1 % Neutrophils # (Auto) 3.48 K/uL Lymphocytes # (Auto) 1.87 K/uL Monocytes # (Auto) 0.95 K/uL Eosinophils # (Auto) 0.36 K/uL Basophils # (Auto) 0.01 K/uL RDW Standard Deviation 40.3 fL RDW Coefficient of Variation 12.3 % Immature Granulocyte % (Auto) 0.6 % Immature Granulocyte # (Auto) 0.04 K/uL Sodium Level 139 mmol/L Potassium Level 3.0 mmol/L Chloride Level 97 mmol/L Carbon Dioxide Level 35 mmol/L Anion Gap 7.0 mmol/L Blood Urea Nitrogen 34 mg/dl Creatinine 1.50 mg/dl Est Creatinine Clear Calc Drug Dose 49.0 ml/min Estimated GFR () 50.2 Estimated GFR (Non- 43.3 BUN/Creatinine Ratio 22.5 Random Glucose 85 mg/dl Calcium Level 8.1 mg/dl Magnesium Level 2.3 mg/dl Assessment and Plan 81 y/o M Pt transferred from [facility] because of A Lumbar MRI was obtained revealing L3-4, L4-5, L5-S1 stenosis in addition to a possible pars fracture at L5. The pts MD and oncologist were contacted and requested that he be transferred to [facility] for further evaluation. Stable Lower back pain with L3-4, L4-5, L5-S1 stenosis in addition to a possible pars fracture at L5, and from prostate cancer metastasis MRI of the thoracic spine also shows multiple levels of bone involvement but without fracture or any cord is intact and not impinged. fairy pain control, we'll continue pain control Plan oncologist, If his back pain continues to be an issue that radiation therapy should be consulted. His current PSA is 2.2 which is quite acceptable and better than before. Chronic respiratory failure with history of COPD home O2 dependent, currently in baseline Hypokinemia, replaced Need to follow-up PT OT recommendations, and define discharge plan Patient did not report any weakness or numbness. Will follow-up oncologist Possible need rehabilitation prostate CA -metastasis previously on Casodex and Xgeva We'll follow a hematology oncology consultation Hx metastatic prostate CA , chronic back pain, COPD, PAF: Stable we'll continue current care, Diabetic we'll continue home medication, check HbA1c, insulin sliding scale, diabetic diet, Full code Heparin prophylaxis Possible discharge in day 1 or 2 or go to rehabilitation Continued [facility] stay due to: multiple IV medications needed Discharge planning: uncertain
[2016-08-06 19:49] VITALS: BP 101/61; PULSE 76; TEMP 36.8; O2SAT 93
[2016-08-06] MEDS: DONEPEZIL HCL 5 MG TAB PO SCH (20:12)
[2016-08-06] MEDS: ATORVASTATIN 10 MG TAB PO SCH (20:12)
[2016-08-07] VITALS (7 sets, daily range): BP systolic 103–144; BP diastolic 57–74; PULSE 59–75; TEMP 36.5–36.7; O2SAT 89–97; Ht 175.3 cm; Wt 112.4 kg
[2016-08-07] MEDS: HEPARIN SOD 5000 UNIT/0.5 ML CARP SQ SCH ×2 (06:00→13:35)
[2016-08-07 07:25] LABS: ESTIMATED AVERAGE GLUCOSE 134 mg/dl; HA1C FLAG Normal (Normal)
[2016-08-07] MEDS: MAGNESIUM OXIDE 400 MG TAB PO SCH (08:20)
[2016-08-07] MEDS: FLUTICASONE PROPIONATE NA SPR 16 GM BTL SCH (08:20)
[2016-08-07] MEDS: BUDESONIDE/FORMOTEROL FUMARATE 160/4.5 60 PUFFS/INHALER INH SCH (08:20)
[2016-08-07] MEDS: PROPAFENONE HCL 150 MG TAB PO SCH ×2 (08:21→13:31)
[2016-08-07] MEDS: POTASSIUM CHLORIDE PWD 20 MEQ PACK PO SCH (08:21)
[2016-08-07] MEDS: PANTOprazole SOD 40 MG TAB PO SCH (08:21)
[2016-08-07] MEDS: FINASTERIDE 5 MG TAB PO SCH (08:21)
[2016-08-07] MEDS: CETIRIZINE HCL 10 MG TAB PO SCH (08:21)
[2016-08-07] MEDS: METOPROLOL SUCC 25MG EXT REL TAB PO SCH (08:22)
[2016-08-07] MEDS: FUROSEMIDE 40 MG TAB PO SCH (08:22)
[2016-08-07] MEDS: TAMSULOSIN HCL 0.4 MG CAP PO SCH (08:22)
[2016-08-07] MEDS: BICALUTAMIDE 50 MG TAB PO SCH (08:29)
[2016-08-07] MEDS ORDERED: OXYC-57 PO (15:57)
--- NOTE | 2016-08-07 15:58 | Discharge Instructions ---
Discharge Instructions Date of Service August 07, 2016. Admission Reason for Admission: Intractable Back Pain, Mestatic Prostate Ca, Discharge Discharge Diagnosis / Problem: worsening back pain related to prostate cancer Discharge Goals Goal(s): Decrease discomfort, Improve disease control Activity Recommendations Activity Limitations: resume your previous activity . Instructions / Follow-Up Instructions / Follow-Up call Dr Bowen this week, and follow up with him per his recommendations, follow up with Dr Olsen in 1-2 weeks Current Hospital Diet Patient's current hospital diet: Regular Diet Discharge Diet Recommended Diet: Regular Diet Pending Studies Studies pending at discharge: no Laboratory Results Hemoglobin A1c Test 08/06/16 05:15 Range/Units Estimated Average Glucose 134 mg/dl Hemoglobin A1c 6.3 H 4.5-5.6 % Medical Emergencies . Who to Call and When: Medical Emergencies: If at any time you feel your situation is an emergency, please call 911 immediately. . Non-Emergent Contact Non-Emergency issues call your: Primary Care Provider, Oncologist, Urologist . . "Provider Documentation" section prepared by Andrea Asencio. . VTE Core Measure Inpt VTE Proph given/why not?: Unfractionated heparin SQ
--- NOTE | 2016-08-07 17:47 | Discharge Summary ---
Discharge Summary Date of Service August 07, 2016. Discharge Summary Admission Date: August 04, 2016 at 20:40 Discharge Date: August 07, 2016 Discharge Disposition: Home Principal Diagnosis: back pain related to prostate cancer Procedures: MRI OF THE CERVICAL SPINE COMBO CLINICAL HISTORY: Metastatic prostate cancer. Back pain. COMPARISON STUDY: CT scan of the chest dated 03/16/2016. TECHNIQUE: MRI of the thoracic spine is performed utilizing various T1 and T2-weighted sequences in the axial and sagittal planes. Contrast-enhanced sequences are acquired following the IV administration of 10 mL of Gadavist. FINDINGS: Marrow signal intensity is markedly heterogeneous. Vertebral body height and alignment are maintained throughout the thoracic spine. There is no MRI evidence of acute fracture. There is unchanged appearance of a large metastatic lesion within the spinous process of T4. This involves the lamina as well as the left transverse process. There is no soft tissue component identified encroaching upon the central canal. There is an additional lesion versus a Schmorl's node seen within the superior endplate of T4. Additional small lesions are present throughout the spine. Lesions are clearly seen within the bodies of C5, T6, T7, T9, T10, T11, T12, and L1. A lesion is also seen within the spinous process of T1. Several posterior rib lesions are identified. Multilevel degenerative disc desiccation and loss of height are identified. There are numerous tiny posterior disc bulges. No large disc herniation is seen and there is no significant acquired compromise of the central canal. No high-grade neural foraminal stenosis is identified. The thoracic spinal cord is normal in morphology and signal intensity. The conus medullaris terminates at the level of L1. No abnormal cord enhancement is identified. The lung parenchyma is grossly clear but not well assessed MRI. The paraspinous soft tissues are within normal limits noting fatty atrophy of the paraspinous musculature. IMPRESSION: 1. Multifocal osseous metastatic disease is identified and detailed above. This has likely not significantly changed from the 03/16/[address] More lesions are identified by MRI, likely due to the increased sensitivity of this modality. 2. There is no clear MRI evidence of pathologic fracture. 3. There is no disc herniation or evidence of acquired compromise of the central canal. Dictated: 08/05/2016 6:04 PM Transcribed: 08/05/2016 8:17 PM Yolanda Consultations: heme/onc Medication Reconciliation New Medications: Oxycodone/Acetaminophen 5MG/325MG (Percocet 5MG/325MG) Tab 1 TABLET PO Q6H PRN for Pain, #30 TAB Continued Medications: Albuterol Sulf (Ventolin) 2 Mg/5 Ml Syrp 1 APPLN INH QID Albuterol Sulfate (Proventil Hfa) 108 Mcg/Act Aer 2 PUFF INH TID PRN for Shortness of Breath Atorvastatin (Lipitor) 10 Mg Tab 1 TAB PO HS for 30 Days, TAB 5 Refills Bicalutamide (Casodex) 50 Mg Tab 1 TAB PO DAILY for 30 Days, #30 TAB 11 Refills Budesonide/Formoterol Fumarate (Symbicort 160/4.5 Inhaler ) Aero 2 PUFFS INH BID, INHALER Cetirizine (Zyrtec) 10 Mg Tab 10 MG PO DAILY, TAB Donepezil HCl (Aricept) 5 Mg Tab 1 TAB PO HS for 30 Days, #30 TAB 5 Refills Finasteride (Proscar) 5 Mg Tab 1 TAB PO DAILY for 90 Days, #90 TAB 1 Refill Fluticasone Prop/Salmeterol (Advair Diskus 250/50 60 Dose) 1 Ea Aerp 1 PUFFS INH BID for 90 Days, #3 INHALER 3 Refills Furosemide (Lasix) 40 Mg Tab 40 MG PO DAILY, TAB Ipratropium-Albuterol (Duoneb) 3 Ml Nebu 1 TREATMENT INH Q4H, INHA Magnesium Oxide (Mag-Ox) 400 Mg Tab 400 MG PO BID, TAB Methylcobalamin ([id number]) 1 Mg Chw 1 CAP PO DAILY Metoprolol Succ (Toprol Xl) (Toprol-Xl) 25 Mg Tabcr 25 MG PO DAILY, #30 TAB Pantoprazole (Protonix) 40 Mg Tab 40 MG PO DAILY, #30 TAB Potassium Chloride Pwd (Klor-Con Pwd) 20 Meq Pack 1 TAB PO DAILY Propafenone Hcl (Rythmol) 225 Mg Tab 150 MG PO TID Tamsulosin Hcl (Flomax) 0.4 Mg Cap 1 CAP PO DAILY for 30 Days, #30 CAP 5 Refills Discharge Exam Physical Exam: General Appearance: no apparent distress Eyes: EOMI Neck: trachea midline Respiratory/Chest: no respiratory distress, no accessory muscle use Extremities: normal inspection Neurologic/Psychiatric: 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 Discharge Instructions Please refer to the electronic Patient Visit Report (Discharge Instructions) for additional information. Follow-Up 81 y/o M Pt transferred from [facility] because of A Lumbar MRI was obtained revealing L3-4, L4-5, L5-S1 stenosis in addition to a possible pars fracture at L5. The pts MD and oncologist were contacted and requested that he be transferred to [facility] for further evaluation. Stable Lower back pain with L3-4, L4-5, L5-S1 stenosis in addition to a possible pars fracture at L5, and from prostate cancer metastasis MRI of the thoracic spine also shows multiple levels of bone involvement but without fracture or any cord is intact and not impinged. fairy pain control initially, but improved nicely with conservative care Plan per oncologist: If his back pain continues to be an issue that radiation therapy should be consulted. -did surprisingly well with therapy today, notes pain much better, and really wants to go home - so safe/stable for discharge - sent w Rx for percocet (risks/ benefits/side effects outlined, PDMP reviewed) Chronic respiratory failure with history of COPD home O2 dependent, currently in baseline Hypokalemia, replaced prostate CA -metastasis previously on Casodex and Xgeva -outpt f/u w heme/onc and urology, as well as XRT if pain persists DVT proph - heparin SQ stable for home Additional Copies To Josué Jung D.O.; Viral Olsen MD, Urology; Arnold Bowen MD
[2016-10-04] MEDS ORDERED: LEUP30IN3 IM (10:05)
== END 2016-08-07 18:27 | disposition home or self-care (01) | DRG 948 ==
LOC: C.4E 20:40
PROVIDERS: ADMIT Family Medicine; ATTEND Family Medicine
DX: G89.3 Neoplasm related pain (acute) (chronic) (principal); C79.51 Secondary malignant neoplasm of bone; J96.10 Chronic respiratory failure, unspecified whether with hypoxia or hypercapnia; C61 Malignant neoplasm of prostate; M54.9 Dorsalgia, unspecified; G89.29 Other chronic pain; J44.9 Chronic obstructive pulmonary disease, unspecified; I48.0 Paroxysmal atrial fibrillation; E11.9 Type 2 diabetes mellitus without complications; E87.6 Hypokalemia; Z99.81 Dependence on supplemental oxygen; Z87.891 Personal history of nicotine dependence; Z79.4 Long term (current) use of insulin

== ENCOUNTER 2016-09-02 10:40 | Inpatient (IN) | payer BC, OTHER ==
[~2016-09-02] VITALS: Ht 177.8 cm; Wt 116.3 kg
[~2016-09-02 10:40] MED LIST changes: +OXYC-57 PO
[2016-09-02] MEDS ORDERED: ALBUT/IPRATROP 3MG/0.5MG NEB 3 ML VIAL INH STA (11:18)
[2016-09-02] MEDS ORDERED: SODIUM CHLORIDE 0.9% 250ML 250 ML IV STA (11:18)
[2016-09-02] MEDS ORDERED: METHYLPREDNISOLONE 125 MG VIAL IV STA (11:18)
[2016-09-02 11:43] LABS: BASO % 0.2 %; BASO ABS # 0.02 K/uL (0-0.2); COMPLETE YES; EOS % 0.6 %; IG% 0.4 %; LYMPH % 15.6 %; MEAN CELL VOLUME 90.9 fL (80-100); MEAN CORPUSCULAR HEMOGLOBIN 30.7 pg (25-34); MEAN CORPUSCULAR HGB CONC 33.7 g/dl (32-36); MONO % 12.6 %; NEUT % 70.6 %; PLATELET COUNT 137 K/uL (130-400); RED BLOOD COUNT 4.73 M/uL (4.7-6.1); WHITE BLOOD COUNT 8.35 K/uL (4.8-10.8)
[2016-09-02 11:51] LABS: INR 1.2 (0.9-1.1); PARTIAL THROMBOPLASTIN RATIO 1.1; PROTHROMBIN TIME (PATIENT) 12.6 SECONDS (9.0-12.0)
--- NOTE | 2016-09-02 11:51 | DIAGNOSTIC IMAGING REPORT ---
SINGLE VIEW CHEST CLINICAL HISTORY: Generalized weakness. FINDINGS: An AP, portable, upright chest radiograph is correlated with chest CT dated 03/16/2016. The examination is severely degraded by portable technique, apical lordotic positioning, motion artifact, and patient rotation. The heart is enlarged and there is atherosclerotic calcification of the thoracic aorta. Advanced emphysema and chronic interstitial thickening are similar to previous. There is bibasilar scarring versus atelectasis. No airspace consolidation is seen typical for pneumonia and there is no large pleural effusion. No pneumothorax is seen. The skeletal structures are osteopenic. The bony thorax is grossly intact. A right shoulder arthroplasty is in place. IMPRESSION: Cardiomegaly and severe emphysema. No acute cardiopulmonary abnormality is seen. Electronically signed by: Jacob Rivera M.D. 09/02/2016 11:50 AM Dictated Date/Time: 09/02/2016 11:47 AM
[2016-09-02 11:58] LABS: BUN/CREATININE RATIO 13.1 (10-20); CALCIUM 8.6 mg/dl (8.5-10.1); CREATININE 2.1 mg/dl (0.60-1.40); POTASSIUM 3.2 mmol/L (3.5-5.1)
[2016-09-02] MEDS ORDERED: CLR10 PO (12:11)
[2016-09-02] MEDS ORDERED: THIA100T11 PO (12:12)
[2016-09-02] MEDS ORDERED: POTA20TA16 PO (12:12)
[2016-09-02] MEDS ORDERED: CYAN1CAP3 PO (12:13)
[2016-09-02] MEDS ORDERED: MAGN30TA4 PO (12:15)
[2016-09-02] MEDS ORDERED: PROP150T PO (12:16)
[2016-09-02] MEDS ORDERED: METO2.5T PO (12:17)
[2016-09-02] MEDS ORDERED: FLUT0.15 NAE (12:19)
[2016-09-02] MEDS ORDERED: MIRT15TA2 PO (12:19)
[2016-09-02] MEDS ORDERED: SYMIN160 INH (12:21)
[2016-09-02 13:10] VITALS: O2SAT 92; BMI 37.4
--- NOTE | 2016-09-02 13:20 | EMERGENCY ROOM VISIT NOTE ---
History Report prepared by Sal: Criss Ling Under the Supervision of: Dr. Danish Rich M.D. First contact with patient: 11:09 Chief Complaint: WEAKNESS Stated Complaint: WEAKNESS-NOT EATING History of Present Illness The patient is a 81 year old male who presents to the Emergency Room with complaints of worsening weakness beginning yesterday. Per the patient and his significant other, the patient yesterday became very weak. She states that this has happened before. The patient is experiencing a cough, no appetite since Sunday and diarrhea. The patient typically has diarrhea but since yesterday it has been worse than normal. The patient has not had any recent antibiotics. He denies any sick contacts. The patient is currently being treated for metastatic prostate cancer. He does wear 2 liters of oxygen at home. The patient denies chest pain at this moment but he does note some chest tightness this morning. He denies any sensation of his heart racing. The patient has had no exposure to illness, he is not experiencing urinary symptoms. Source of History: patient, spouse/significant other Onset: yesterday Position: other (global) Quality: other (weakness) Timing: worsening Associated Symptoms: + cough, + chest pain (tightness this morning but resolved now), + diarrhea, No urinary symptoms Review of Systems See HPI for pertinent positives & negatives. A total of 10 systems reviewed and were otherwise negative. Past Medical & Surgical Medical Problems: (1) Intractable back pain (2) Prostate cancer Family History Patient reports no known family medical history. Social History Smoking Status: Former Smoker Marital Status: in relationship Housing Status: lives with significant other Occupation Status: retired Current/Historical Medications Scheduled Atorvastatin (Lipitor), 10 MG PO HS Bicalutamide (Casodex), 50 MG PO DAILY Budesonide/Formoterol Fumarate (Symbicort 160/4.5 Inhaler ), 2 PUFFS INH BID Cyanocobalamin (B-12), 2,000 MCG PO DAILY Donepezil HCl (Aricept), 5 MG PO HS Finasteride (Proscar), 5 MG PO DAILY Fluticasone Propionate (Nasal) (Flonase Allergy Relief), 1 SPRAY LIZETH BID Furosemide (Lasix), 40 MG PO DAILY Loratadine (Claritin), 10 MG PO DAILY Magnesium Gluconate (Magnesium), 420 MG PO BID Metolazone (Zaroxolyn), 2.5 MG PO 2XWK Metoprolol Succ (Toprol Xl) (Toprol-Xl), 12.5 MG PO DAILY Mirtazapine Soltab (Remeron Soltab), 15 MG PO HS Pantoprazole (Protonix), 40 MG PO DAILY Potassium Ext Rel (Klor-Con), 20 MEQ PO DAILY Propafenone Hcl (Propafenone Hcl), 150 MG PO TID Tamsulosin Hcl (Flomax), 0.4 MG PO DAILY Thiamine Hcl (Vitamin B-1), 100 MG PO DAILY Scheduled PRN Albuterol Sulfate (Proventil Hfa), 1 PUFF INH QID PRN for Shortness of Breath Ipratropium-Albuterol (Duoneb), 1 TREATMENT INH Q6H PRN for SOB/Wheezing Oxycodone/Acetaminophen 5MG/325MG (Percocet 5MG/325MG), 1 TABLET PO Q6H PRN for Pain Allergies Coded Allergies: No Known Allergies (Verified , 09/02/16) Physical Exam Vital Signs Date Time Temp Pulse Resp B/P (MAP) Pulse Ox O2 Delivery O2 Flow Rate FiO2 09/02/16 12:15 101 20 135/78 94 Nasal Cannula 2.0 09/02/16 11:45 100 24 124/80 93 Nasal Cannula 2.0 09/02/16 11:36 110 24 129/85 96 Nasal Cannula 2.0 09/02/16 11:19 Nasal Cannula 2.0 09/02/16 11:18 90 Room Air 09/02/16 11:06 126 09/02/16 11:03 91 Room Air 09/02/16 10:44 36.8 101 18 119/73 91 Room Air Physical Exam Constitutional: Vital signs reviewed. Eyes: Pupils are equal round reactive to light. Conjunctiva are noninjected. ENT: Pharynx is clear without erythema or exudate. Mucous membranes are dry. Neck supple without meningeal signs. Respiratory: Wheezing diffuse bilaterally. Breath sounds are equal bilaterally. Cardiovascular: Irregular irregular rhythm, tachycardic at 118. No rubs or gallops. GI: Soft, nondistended and nontender. Bowel sounds are present. Musculoskeletal: No peripheral edema. No lower extremity tenderness. Integumentary: No cyanosis. Neurological: The patient is awake and alert. No focal deficits. Psychiatric: Normal affect. Medical Decision & Procedures ER Provider Diagnostic Interpretation: X-ray results as stated below per interpretation by me and the radiologist: SINGLE VIEW CHEST CLINICAL HISTORY: Generalized weakness. FINDINGS: An AP, portable, upright chest radiograph is correlated with chest CT dated 03/16/2016. The examination is severely degraded by portable technique, apical lordotic positioning, motion artifact, and patient rotation. The heart is enlarged and there is atherosclerotic calcification of the thoracic aorta. Advanced emphysema and chronic interstitial thickening are similar to previous. There is bibasilar scarring versus atelectasis. No airspace consolidation is seen typical for pneumonia and there is no large pleural effusion. No pneumothorax is seen. The skeletal structures are osteopenic. The bony thorax is grossly intact. A right shoulder arthroplasty is in place. IMPRESSION: Cardiomegaly and severe emphysema. No acute cardiopulmonary abnormality is seen. Electronically signed by: Jacob Rivera M.D. 09/02/2016 11:50 AM Dictated Date/Time: 09/02/2016 11:47 AM Laboratory Results 09/02/16 11:10 Red Blood Count 4.73, Mean Corpuscular Volume 90.9, Mean Corpuscular Hemoglobin 30.7, Mean Corpuscular Hemoglobin Concent 33.7, Mean Platelet Volume 12.0, Neutrophils (%) (Auto) 70.6, Lymphocytes (%) (Auto) 15.6, Monocytes (%) (Auto) 12.6, Eosinophils (%) (Auto) 0.6, Basophils (%) (Auto) 0.2, Neutrophils # (Auto ) 5.90, Lymphocytes # (Auto) 1.30, Monocytes # (Auto) 1.05, Eosinophils # (Auto ) 0.05, Basophils # (Auto) 0.02 09/02/16 11:10 Test 09/02/16 11:10 09/02/16 11:22 White Blood Count 8.35 K/uL (4.8-10.8) Red Blood Count 4.73 M/uL (4.7-6.1) Hemoglobin 14.5 g/dL (14.0-18.0) Hematocrit 43.0 % (42-52) Mean Corpuscular Volume 90.9 fL (80-100) Mean Corpuscular Hemoglobin 30.7 pg (25-34) Mean Corpuscular Hemoglobin Concent 33.7 g/dl (32-36) Platelet Count 137 K/uL (130-400) Mean Platelet Volume 12.0 fL (7.4-10.4) Neutrophils (%) (Auto) 70.6 % Lymphocytes (%) (Auto) 15.6 % Monocytes (%) (Auto) 12.6 % Eosinophils (%) (Auto) 0.6 % Basophils (%) (Auto) 0.2 % Neutrophils # (Auto) 5.90 K/uL (1.4-6.5) Lymphocytes # (Auto) 1.30 K/uL (1.2-3.4) Monocytes # (Auto) 1.05 K/uL (0.11-0.59) Eosinophils # (Auto) 0.05 K/uL (0-0.5) Basophils # (Auto) 0.02 K/uL (0-0.2) RDW Standard Deviation 42.8 fL (36.4-46.3) RDW Coefficient of Variation 12.8 % (11.5-14.5) Immature Granulocyte % (Auto) 0.4 % Immature Granulocyte # (Auto) 0.03 K/uL (0.00-0.02) Prothrombin Time 12.6 SECONDS (9.0-12.0) Prothromb Time International Ratio 1.2 (0.9-1.1) Activated Partial Thromboplast Time 27.5 SECONDS (21.0-31.0) Partial Thromboplastin Ratio 1.1 Anion Gap 13.0 mmol/L (3-11) Est Creatinine Clear Calc Drug Dose 35.1 ml/min Estimated GFR () 33.4 Estimated GFR (Non- 28.9 BUN/Creatinine Ratio 13.1 (10-20) Calcium Level 8.6 mg/dl (8.5-10.1) Chemistry Specimen Hemolysis Bedside Troponin I 0.060 ng/ml (0-0.045) Laboratory results as reviewed by me. Medications Administered Medications (Trade) Dose Ordered Sig/Reji Route Start Time Stop Time Status Last Admin Dose Admin Methylprednisolone Sodium Succinate (Solu-Medrol IV) 125 mg NOW STAT IV 09/02/16 11:18 09/02/16 11:20 DC 09/02/16 11:23 125 MG Albuterol/ Ipratropium (Duoneb) 3 ml NOW STAT INH 09/02/16 11:18 6/24/17 11:20 DC 09/02/16 11:23 3 ML Sodium Chloride 250 ml @ 999 mls/hr Q16M STAT IV 09/02/16 11:18 09/02/16 11:33 DC 09/02/16 11:18 999 MLS/HR ECG Indication: weakness Rate (beats per minute): 121 Rhythm: atrial fibrillation (with RVR) Findings: RBBB, other (nonspecific T wave changes) ED Course 1112: The patient was evaluated in room A2. A complete history and physical exam was performed. 1118: Sodium Chloride 250 ml @ 999 mls/hr IV, Duoneb 3 ml INH, Solu-Medrol IV 125 mg IV. 1206: I reevaluated the patient. He is still wheezing. He has a heart rate of 98 , blood pressure of 124/80. I discussed his test results with him. 1218: I spoke with [place]. Yadav of [facility] [place] We discussed the patient and his results. The patient will be further evaluated by Dr. Yadav - [facility]. Medical Decision This is an 81-year-old male who presents with generalized weakness, diarrhea, chest pain and tachycardia. Differential diagnosis includes dehydration, colitis, enteritis, COPD exacerbation, A. fib with RVR, renal failure. I did perform a limited focused review of portions of the patient's old chart on the electronic medical record. The patient was hospitalized August 07 because of back pain related to metastatic prostate cancer. Medication Reconciliation: I attest that I have personally reviewed the patient' s current medication list. Blood Pressure Screening: Patient was found to have normal blood pressure on screening and does not require follow-up. I did evaluate the patient as noted above. The patient is presenting with generalized weakness. He is having trouble eating to the bathroom. He had chest pain earlier which is now resolved. He has not eaten since Sunday and has diarrhea. IV access was established. The patient was placed on a continuous donor recruitment manager. I did order and personally review the patient's 12- lead EKG and chest x-ray as described above. He does have A. fib with RVR. I did treat him with normal saline IV. He was also given a DuoNeb and Solu- Medrol IV. I did order and review the patient's blood work as noted in the electronic medical record. His creatinine is elevated. His troponin is elevated as well. I did reassess the patient. He continues to wheeze. I did recommend hospitalization for further care and evaluation. I did discuss the case with the hospitalist and case packer and sealer. Consults Time Called: 1216 Consulting Physician: Dr. Leif Navas [facility] Returned Call: [address] Yadav of [facility]. We discussed the patient and his results. The patient will be further evaluated by Dr. Leif SWIFT. Impression Primary Impression: COPD exacerbation Additional Impressions: Acute chest pain Elevated troponin Atrial fibrillation with RVR Acute on chronic kidney failure Diarrhea Scribe Attestation The scribe's documentation has been prepared under my direct and personally reviewed by me in its entirety. I confirm that the note above accurately reflects all work, treatment, procedures, and medical decision making performed by me. Departure Information Dispostion Being Evaluated By Hospitalist Referrals No Doctor, Assigned (PCP) Problem Qualifiers Additional Impressions: Acute on chronic kidney failure Acute renal failure type: unspecified Chronic kidney disease stage: unspecified stage Qualified Codes: N17.9 - Acute kidney failure, unspecified; N18.9 - Chronic kidney disease, unspecified Diarrhea Diarrhea type: unspecified type Qualified Codes: R19.7 - Diarrhea, unspecified
[2016-09-02] MEDS ORDERED: OXYCODONE/ACETAMINOPHEN 5-325 TAB PO PRN (14:00)
[2016-09-02] MEDS ORDERED: ONDANSETRON INJ 2 MG/ML 2 ML VIAL IV PRN (14:00)
[2016-09-02] MEDS ORDERED: MAGNESIUM HYDROXIDE SUSP 30 ML UDC PO PRN (14:00)
[2016-09-02] MEDS ORDERED: ACETAMINOPHEN 325 MG TAB PO PRN (14:00)
--- NOTE | 2016-09-02 14:04 | History and Physical ---
History & Physical Date & Time of Service: Sep 02, 2016 at 13:54 Chief Complaint: Weakness-Not Eating Primary Care Physician: Josué Jung D.O. History of Present Illness Source: patient 81 y/o M with multiple medical complaints. Pt states that he has been SOB both at rest and with exertion. He states he has home O2, but is uncertain if he is supposed to be wearing it continuously and cannot really tell me if he does. [facility]" and "I was 89 or 87 without it", but he states that no one has f/u with him about the results. He had a neb and steroids in the ED and has not SOB at rest now, but states his breathing still feels tight. No chest pain with the episodes. Feeling improved s/p nebs. Pt states that he regularly has diarrhea, but it has been increased lately. He has abd cramping with the diarrhea episodes only, otherwise no abd pain. He has also had no appetite and decreased PO intake, which usually is not the case. No issues with urination. Pt denies fever, n/v, LE pain or swelling. Past Medical/Surgical History Metastatic prostate ca, no chemo or radiation HTN GERD HypoK HypoMg HLD COPD on home O2 Family History Family history was reviewed; no changes noted. Social History Smoking Status: Former Smoker (quit 1991) Alcohol Use: quit 1991 Marital Status: in relationship Occupational Status: retired Multi-Drug Resistant Organisms History of MDRO: No Allergies Coded Allergies: No Known Allergies (Verified , 09/02/16) Home Medications Scheduled Atorvastatin (Lipitor), 10 MG PO HS Bicalutamide (Casodex), 50 MG PO DAILY Budesonide/Formoterol Fumarate (Symbicort 160/4.5 Inhaler ), 2 PUFFS INH BID Cyanocobalamin (B-12), 2,000 MCG PO DAILY Donepezil HCl (Aricept), 5 MG PO HS Finasteride (Proscar), 5 MG PO DAILY Fluticasone Propionate (Nasal) (Flonase Allergy Relief), 1 SPRAY LIZETH BID Furosemide (Lasix), 40 MG PO DAILY Loratadine (Claritin), 10 MG PO DAILY Magnesium Gluconate (Magnesium), 420 MG PO BID Metolazone (Zaroxolyn), 2.5 MG PO 2XWK Metoprolol Succ (Toprol Xl) (Toprol-Xl), 12.5 MG PO DAILY Mirtazapine Soltab (Remeron Soltab), 15 MG PO HS Pantoprazole (Protonix), 40 MG PO DAILY Potassium Ext Rel (Klor-Con), 20 MEQ PO DAILY Propafenone Hcl (Propafenone Hcl), 150 MG PO TID Tamsulosin Hcl (Flomax), 0.4 MG PO DAILY Thiamine Hcl (Vitamin B-1), 100 MG PO DAILY Scheduled PRN Albuterol Sulfate (Proventil Hfa), 1 PUFF INH QID PRN for Shortness of Breath Ipratropium-Albuterol (Duoneb), 1 TREATMENT INH Q6H PRN for SOB/Wheezing Oxycodone/Acetaminophen 5MG/325MG (Percocet 5MG/325MG), 1 TABLET PO Q6H PRN for Pain Review of Systems reviewed and neg otherwise Physical Exam Vital Signs Date Time Temp Pulse Resp B/P (MAP) Pulse Ox O2 Delivery O2 Flow Rate FiO2 09/02/16 13:00 102 20 103/69 94 Nasal Cannula 2.0 09/02/16 12:15 101 20 135/78 94 Nasal Cannula 2.0 09/02/16 11:45 100 24 124/80 93 Nasal Cannula 2.0 09/02/16 11:36 110 24 129/85 96 Nasal Cannula 2.0 09/02/16 11:19 Nasal Cannula 2.0 09/02/16 11:18 90 Room Air 09/02/16 11:06 126 09/02/16 11:03 91 Room Air 09/02/16 10:44 36.8 101 18 119/73 91 Room Air General Appearance: no apparent distress, + obese Head: normocephalic, atraumatic Eyes: normal inspection, sclerae normal Respiratory/Chest: no respiratory distress, + decreased breath sounds, + wheezing (diffuse, inspiratory and expiratory) Cardiovascular: regular rate, rhythm, no edema Abdomen/GI: non tender, soft Extremities/Musculoskelatal: no calf tenderness, no pedal edema Neurologic/Psych: alert, normal mood/affect Skin: normal color, warm/dry Diagnostics Laboratory Results Results Past 24 Hours Test 09/02/16 11:10 09/02/16 11:22 Range/Units White Blood Count 8.35 4.8-10.8 K/uL Red Blood Count 4.73 4.7-6.1 M/uL Hemoglobin 14.5 14.0-18.0 g/dL Hematocrit 43.0 42-52 % Mean Corpuscular Volume 90.9 80-100 fL Mean Corpuscular Hemoglobin 30.7 25-34 pg Mean Corpuscular Hemoglobin Concent 33.7 32-36 g/dl Platelet Count 137 130-400 K/uL Mean Platelet Volume 12.0 7.4-10.4 fL Neutrophils (%) (Auto) 70.6 % Lymphocytes (%) (Auto) 15.6 % Monocytes (%) (Auto) 12.6 % Eosinophils (%) (Auto) 0.6 % Basophils (%) (Auto) 0.2 % Neutrophils # (Auto) 5.90 1.4-6.5 K/uL Lymphocytes # (Auto) 1.30 1.2-3.4 K/uL Monocytes # (Auto) 1.05 0.11-0.59 K/uL Eosinophils # (Auto) 0.05 0-0.5 K/uL Basophils # (Auto) 0.02 0-0.2 K/uL RDW Standard Deviation 42.8 36.4-46.3 fL RDW Coefficient of Variation 12.8 11.5-14.5 % Immature Granulocyte % (Auto) 0.4 % Immature Granulocyte # (Auto) 0.03 0.00-0.02 K/uL Prothrombin Time 12.6 9.0-12.0 SECONDS Prothromb Time International Ratio 1.2 0.9-1.1 Activated Partial Thromboplast Time 27.5 21.0-31.0 SECONDS Partial Thromboplastin Ratio 1.1 Sodium Level 135 136-145 mmol/L Potassium Level 3.2 3.5-5.1 mmol/L Chloride Level 95 98-107 mmol/L Carbon Dioxide Level 27 21-32 mmol/L Anion Gap 13.0 3-11 mmol/L Blood Urea Nitrogen 28 7-18 mg/dl Creatinine 2.10 0.60-1.40 mg/dl Est Creatinine Clear Calc Drug Dose 35.1 ml/min Estimated GFR () 33.4 Estimated GFR (Non- 28.9 BUN/Creatinine Ratio 13.1 10-20 Random Glucose 114 70-99 mg/dl Calcium Level 8.6 8.5-10.1 mg/dl Chemistry Specimen Hemolysis Bedside Troponin I 0.060 0-0.045 ng/ml Diagnostic Radiology CXR neg for acute Impression Assessment and Plan 81 y/o M who was admitted on 09/02 for SOB. SOB: likely acute on chronic COPD exacerbation On home O2 at baseline CXR neg for acute Improved s/p nebs and steroids, will continue Trop with slight elevation, will monitor on tele Minimally tachy but no chest pain or hypoTN, t/c PE if ongoing issues given metastatic prostate cancer however seems less likely given diffuse wheezing and sx improved s/p nebs and steroids. ARF: in the setting of decreased PO intake and diarrhea Monitor on IVF Diarrhea: Acute GE vs related to prostate ca Monitor HypoK: replace IV and monitor HTN: stable, monitor on home meds Other: Full code, although pt specifies that he does not want prolonged mechanical life support AHA diet Heparin for DVT proph Level of Care Med/Surg Resuscitation Status FULL RESUSCITATION VTE Prophylaxis VTE Risk Assessment Done? Y/N: Yes Risk Level: Low
[2016-09-02 14:18] LABS: MAGNESIUM 1.7 mg/dl (1.8-2.4)
[2016-09-02 15:50] VITALS: BP 134/83; PULSE 92; TEMP 36.5; O2SAT 92
[2016-09-02] MEDS: ALBUT/IPRATROP 3MG/0.5MG NEB 3 ML VIAL INH SCH ×2 (16:00→19:00)
[2016-09-02 16:50] VITALS: O2SAT 92
[2016-09-02] MEDS: POTASSIUM CHLR 10 MEQ / WTR 10 MEQ in PREMIXED WATER 100 ML IV SCH ×3 (17:36→22:43)
[2016-09-02] MEDS: PROPAFENONE HCL 150 MG TAB PO SCH ×2 (17:37→20:03)
[2016-09-02] MEDS: NSS + 20MEQ KCL 1000ML 1,000 ML IV SCH (17:37)
[2016-09-02] MEDS ORDERED: MAGNESIUM SULFATE 1GM / D5W 1 GM in PREMIXED IN D5W 100 ML IV SCH (18:30)
[2016-09-02] MEDS ORDERED: HEPARIN IV BOLUS 7,000 UNIT in SYRINGE 0 ML IV ONE (19:00)
[2016-09-02 19:22] VITALS: PULSE 84; O2SAT 95
[2016-09-02] MEDS: MIRTAZAPINE SOLTAB 15 MG PO SCH (20:03)
[2016-09-02] MEDS: DONEPEZIL HCL 5 MG TAB PO SCH (20:04)
[2016-09-02] MEDS: FLUTICASONE PROPIONATE NA SPR 16 GM BTL NAE SCH (20:05)
[2016-09-02] MEDS: BUDESONIDE/FORMOTEROL FUMARATE 160/4.5 60 PUFFS/INHALER INH SCH (20:05)
[2016-09-02 20:08] VITALS: O2SAT 92
[2016-09-02 20:09] VITALS: BP 151/81; PULSE 69; TEMP 36.5; O2SAT 92
[2016-09-02] MEDS: HEPARIN 25,000 UNIT/500ML D5W 500 ML IV PRN (20:11)
[2016-09-02] MEDS: METHYLPREDNISOLONE IV 40 MG in SYRINGE 0 ML IV SCH (21:18)
[2016-09-03] VITALS (15 sets, daily range): BP systolic 98–127; BP diastolic 52–73; PULSE 69–88; TEMP 36–36.8; O2SAT 92–96; Ht 177.8 cm; Wt 116.3 kg
[2016-09-03] MEDS: POTASSIUM CHLR 10 MEQ / WTR 10 MEQ in PREMIXED WATER 100 ML IV SCH (01:23)
[2016-09-03 02:56] LABS: PARTIAL THROMBOPLASTIN RATIO 5.9
[2016-09-03 04:43] LABS: PARTIAL THROMBOPLASTIN RATIO 3.2
[2016-09-03] MEDS: METHYLPREDNISOLONE IV 40 MG in SYRINGE 0 ML IV SCH ×3 (04:55→21:05)
[2016-09-03] MEDS: ALBUT/IPRATROP 3MG/0.5MG NEB 3 ML VIAL INH SCH ×5 (05:01→19:00)
[2016-09-03 05:28] LABS: HEMATOCRIT 34.7 % (42-52); MEAN CELL VOLUME 89.4 fL (80-100); MEAN CORPUSCULAR HEMOGLOBIN 31.2 pg (25-34); MEAN CORPUSCULAR HGB CONC 34.9 g/dl (32-36); MEAN PLATELET VOLUME 11.2 fL (7.4-10.4); PLATELET COUNT 103 K/uL (130-400); RED BLOOD COUNT 3.88 M/uL (4.7-6.1); WHITE BLOOD COUNT 6.49 K/uL (4.8-10.8)
[2016-09-03] MEDS: NSS + 20MEQ KCL 1000ML 1,000 ML IV SCH (05:39)
[2016-09-03] MEDS: PROPAFENONE HCL 150 MG TAB PO SCH ×3 (05:40→21:07)
[2016-09-03 05:46] LABS: PARTIAL THROMBOPLASTIN RATIO 2.4
[2016-09-03 05:58] LABS: CREATININE 1.8 mg/dl (0.60-1.40); MAGNESIUM 1.9 mg/dl (1.8-2.4); POTASSIUM 3.2 mmol/L (3.5-5.1)
[2016-09-03] MEDS: HEPARIN 25,000 UNIT/500ML D5W 500 ML IV PRN ×2 (06:51→17:15)
[2016-09-03 07:36] LABS: CALCIUM 7.2 mg/dl (8.5-10.1)
[2016-09-03] MEDS ORDERED: POTASSIUM CHLORIDE 10 MEQ TABCR PO STA (07:38)
[2016-09-03] MEDS ORDERED: POTASSIUM CHLORIDE 20 MEQ TABCR PO SCH (08:00)
[2016-09-03] MEDS: TIOTROPIUM BROMIDE 5 PUFF/90 MCG INH INH SCH (08:20)
[2016-09-03] MEDS: THIAMINE HCL 100 MG TAB PO SCH (08:21)
[2016-09-03] MEDS: BUDESONIDE/FORMOTEROL FUMARATE 160/4.5 60 PUFFS/INHALER INH SCH ×2 (08:21→21:05)
[2016-09-03] MEDS: BICALUTAMIDE 50 MG TAB PO SCH (08:22)
[2016-09-03] MEDS: FUROSEMIDE 40 MG TAB PO SCH (08:22)
[2016-09-03] MEDS: TAMSULOSIN HCL 0.4 MG CAP PO SCH (08:23)
[2016-09-03] MEDS: FINASTERIDE 5 MG TAB PO SCH (08:23)
[2016-09-03] MEDS: METOPROLOL SUCC 25MG EXT REL TAB PO SCH (08:24)
[2016-09-03] MEDS: PANTOprazole SOD 40 MG TAB PO SCH (08:25)
[2016-09-03] MEDS: CYANOCOBALAMIN 500 MCG TAB (VIT B-12) PO SCH (08:25)
[2016-09-03] MEDS: FLUTICASONE PROPIONATE NA SPR 16 GM BTL NAE SCH ×2 (08:25→21:05)
[2016-09-03] MEDS: LORATADINE 10 MG TAB PO SCH (08:26)
[2016-09-03] MEDS ORDERED: DOXYCYCLINE HYCLATE 100 MG CAP PO STA (09:36)
--- NOTE | 2016-09-03 09:54 | Progress Note ---
Subjective Date of Service: Sep 03, 2016. Subjective Pt evaluation today including: conversation w/ patient, physical exam, chart review, lab review, review of inpatient medication list notes that he's feeling better than when he came in but still not great. still LOTS of TAVERA. notes sinus congestion and drainage - thinks this might be also part of the problem - notes recently it's taken about 2hrs for him to clear junk when he gets up in the morning. notes home O2 but relates uncertainty as to when he's supposed to be using it - see note from admitting doc on 80 range pulse ox's and then notes to me that his "lung doctor told me i don't really need it, my numbers say i don't need it, but that he'd get it in the house for if i felt like i could use it" no other acute complaints notes that he'd like to be able to get back to just taking care of his house, cutting the grass from time to time Problem List Medical Problems: (1) Acute chest pain Status: Acute (2) Acute on chronic kidney failure Status: Acute (3) Atrial fibrillation with RVR Status: Acute (4) COPD exacerbation Status: Acute (5) Diarrhea Status: Acute (6) Elevated troponin Status: Acute Review of Systems ROS otherwise negative except for as above Objective Vital Signs Date Time Temp Pulse Resp B/P (MAP) Pulse Ox O2 Delivery O2 Flow Rate FiO2 09/03/16 07:53 36.0 69 22 105/67 (80) 92 Nasal Cannula 2.0 09/03/16 06:59 84 18 96 Nasal Cannula 4.0 09/03/16 05:16 36.3 72 98/52 (67) 93 Nasal Cannula 4.0 09/03/16 05:13 Nasal Cannula 4.0 09/03/16 05:02 78 16 93 Nasal Cannula 4.0 09/03/16 00:24 Nasal Cannula 2.0 09/03/16 00:11 36.8 88 20 127/72 (90) 93 Nasal Cannula 2.0 09/02/16 23:39 Nasal Cannula 2.0 09/02/16 20:09 36.5 69 24 151/81 (104) 92 Mask 6.0 09/02/16 20:08 92 Nasal Cannula 2.0 09/02/16 19:22 84 18 95 Nasal Cannula 2.0 09/02/16 16:50 92 Nasal Cannula 2.0 09/02/16 15:50 36.5 92 22 134/83 (100) 92 Nasal Cannula 2.0 09/02/16 14:48 96 20 116/68 93 09/02/16 14:06 102 24 111/81 92 Nasal Cannula 2.0 09/02/16 13:10 92 Nasal Cannula 2.0 09/02/16 13:00 102 20 103/69 94 Nasal Cannula 2.0 09/02/16 12:15 101 20 135/78 94 Nasal Cannula 2.0 09/02/16 11:45 100 24 124/80 93 Nasal Cannula 2.0 09/02/16 11:36 110 24 129/85 96 Nasal Cannula 2.0 09/02/16 11:19 Nasal Cannula 2.0 09/02/16 11:18 90 Room Air 09/02/16 11:06 126 09/02/16 11:03 91 Room Air 09/02/16 10:44 36.8 101 18 119/73 91 Room Air Physical Exam General Appearance: no apparent distress (fatigued appearing) Eyes: EOMI ENT: hearing grossly normal Neck: trachea midline Respiratory/Chest: no respiratory distress, no accessory muscle use, + wheezing (faint wheeze diffusely A&P, no accessory muscles no focal findings good effort , fairly diminished air entry) Extremities: normal range of motion Neurologic/Psychiatric: regional administrative assistant II-XII nml as tested, alert, normal mood/affect Skin: normal color, warm/dry Laboratory Results Last 24 Hours Test 09/02/16 11:10 09/02/16 11:22 09/02/16 17:14 09/02/16 23:12 White Blood Count 8.35 K/uL Red Blood Count 4.73 M/uL Hemoglobin 14.5 g/dL Hematocrit 43.0 % Mean Corpuscular Volume 90.9 fL Mean Corpuscular Hemoglobin 30.7 pg Mean Corpuscular Hemoglobin Concent 33.7 g/dl Platelet Count 137 K/uL Mean Platelet Volume 12.0 fL Neutrophils (%) (Auto) 70.6 % Lymphocytes (%) (Auto) 15.6 % Monocytes (%) (Auto) 12.6 % Eosinophils (%) (Auto) 0.6 % Basophils (%) (Auto) 0.2 % Neutrophils # (Auto) 5.90 K/uL Lymphocytes # (Auto) 1.30 K/uL Monocytes # (Auto) 1.05 K/uL Eosinophils # (Auto) 0.05 K/uL Basophils # (Auto) 0.02 K/uL RDW Standard Deviation 42.8 fL RDW Coefficient of Variation 12.8 % Immature Granulocyte % (Auto) 0.4 % Immature Granulocyte # (Auto) 0.03 K/uL Prothrombin Time 12.6 SECONDS Prothromb Time International Ratio 1.2 Activated Partial Thromboplast Time 27.5 SECONDS Partial Thromboplastin Ratio 1.1 Sodium Level 135 mmol/L Potassium Level 3.2 mmol/L Chloride Level 95 mmol/L Carbon Dioxide Level 27 mmol/L Anion Gap 13.0 mmol/L Blood Urea Nitrogen 28 mg/dl Creatinine 2.10 mg/dl Est Creatinine Clear Calc Drug Dose 35.1 ml/min Estimated GFR () 33.4 Estimated GFR (Non- 28.9 BUN/Creatinine Ratio 13.1 Random Glucose 114 mg/dl Calcium Level 8.6 mg/dl Magnesium Level 1.7 mg/dl Chemistry Specimen Hemolysis Bedside Troponin I 0.060 ng/ml Troponin I 0.115 ng/ml 0.072 ng/ml Test 09/03/16 02:04 09/03/16 04:14 09/03/16 05:11 09/03/16 07:38 Activated Partial Thromboplast Time 152.2 SECONDS 82.9 SECONDS 61.9 SECONDS Partial Thromboplastin Ratio 5.9 3.2 2.4 White Blood Count 6.49 K/uL Red Blood Count 3.88 M/uL Hemoglobin 12.1 g/dL Hematocrit 34.7 % Mean Corpuscular Volume 89.4 fL Mean Corpuscular Hemoglobin 31.2 pg Mean Corpuscular Hemoglobin Concent 34.9 g/dl RDW Standard Deviation 40.9 fL RDW Coefficient of Variation 12.7 % Platelet Count 103 K/uL Mean Platelet Volume 11.2 fL Sodium Level 137 mmol/L Potassium Level 3.2 mmol/L Chloride Level 98 mmol/L Carbon Dioxide Level 29 mmol/L Anion Gap 10.0 mmol/L Blood Urea Nitrogen 41 mg/dl Creatinine 1.80 mg/dl Est Creatinine Clear Calc Drug Dose 40.9 ml/min Estimated GFR () 40.3 Estimated GFR (Non- 34.8 BUN/Creatinine Ratio 23.0 Random Glucose 204 mg/dl Calcium Level 7.2 mg/dl Magnesium Level 1.9 mg/dl Assessment and Plan hypoxia -appearing to be chronic respiratory failure - probably with a degree of acuity from COPD exacerbation/wheezing -suspect baseline COPD fairly severe COPD/emphysema -add spiriva - had anticholinergic w duonebs, but appeared to be prn - adding this for routine anticholinergic -suspect needs O2 24/7 - before repeating testing, asking for records from PCP. continue O2 -do agree w his assessment that sinusitis likely sparking acute exacerbation -- > steroids, nebs, add doxy to cover atypicals (data suggesting faster resolution of sx) elevated troponin -still low end "smoldering" range -strongly suspect demand ischemia from hypoxia - will ask for records from cardiology (Dr Santo in [place]) --> if records corroborate CAD then exceedingly likely this is the case; if unclear or no known CAD then echo +/- cardiology eval ARF: -improving. down to 1.8, recent baseline appearing to be around 1.5. change to 1/2 NSS w 20k/L repeat BMP in AM hypocalcemia -despite known bony mets. check vitamin D Diarrhea: no complaints of this today HypoK: still low, continue to replace HTN: variable but reasonable ranges - continue home meds and follow Other: Full code, although pt specifies that he does not want prolonged mechanical life support AHA diet Heparin for DVT proph after 1p please page Dr Yadav for cross coverage
--- NOTE | 2016-09-03 09:56 | ECHOCARDIOGRAM REPORT ---
*NOTICE TO RECEIVING DEMOCRAT AGENCY This information is strictly Confidential and protected under [place] law. [place] law prohibits you from making any further disclosure of this information unless further disclosure is expressly permitted by the written consent of the person to whom it pertains or is authorized by law. A general authorization for the release of medical or other information is not sufficient for this purpose. Hospital accepts no responsibility if the information is made available to any other person, INCLUDING THE PATIENT. Interpretation Summary * Name: MICHAEL GARCIA Study Date: 09/03/2016 06:13 AM BP: 98/52 mmHg * Patient Location: .[facility]\S\N285\S\2 HR: 68 * : 1935 (M/d/yyyy) Gender: Male Height: 69 in * Age: 81 yrs Ethnicity: [place] Weight: 253 lb * Ordering Physician: Ninfa Yadav * Performed By: Claudine Olsen * * Reason For Study: ELEVATED TROP * BSA: 2.3 m2 * -- Conclusions -- * 1. Technically limited study despite use of Definity ultrasound contrast. * 2. Grossly normal LV size, mild concentric LVH. * 3. Normal LV systolic function. LVEF 55-60%. No apparent regional wall motion abnormalities. * 4. RV not well visualized. Grossly normal size and function. * 5. No significant valvular pathology. * 6. No prior studies for comparison. Procedure Details * A complete two-dimensional transthoracic echocardiogram was performed (2D, M-mode, Doppler and color flow Doppler). * The study was technically difficult. * There were technical limitations due to patient'sPoor acoustic windows secondary to severe lung disease. * A contrast injection of Definity was performed to improve assessment of LV function. * Contrast was injected into an intravenous site in the left arm. * One vial of Definity ultrasound contrast was diluted in normal saline to a total volume of 10 ml. A total of '4' ml of solution was administered during imaging. * Lot # [id number] of Definity utilized for procedure. * Expiration date 09/26. Left Ventricle * The left ventricle is grossly normal size. * There is mild concentric left ventricular hypertrophy. * Ejection Fraction = 55-60%. * No regional wall motion abnormalities noted. Right Ventricle * The right ventricle is not well visualized. * The right ventricular systolic function is qualitatively normal. Atria * The left atrium is not well visualized. * Right atrium not well visualized. * Linear, mobile, echolucent structure noted in RA on subcostal views. Unable to visualize in other views. Suspect prominent eustachian valve * No ASD detected; PFO is not assessed. Mitral Valve * The mitral valve is not well visualized. * Significant mitral regurgitation is absent. Tricuspid Valve * The tricuspid valve is not well visualized. * There is trace tricuspid regurgitation. Aortic Valve * The aortic valve is not well visualized. * No hemodynamically significant valvular aortic stenosis. * There is no significant aortic regurgitation. Pulmonic Valve * The pulmonary valve is inadequately visualized, but the Doppler data is adequate for interpretation. * Pulmonic stenosis is absent. * There is no significant pulmonary regurgitation. Great Vessels * The aortic root and proximal ascending aorta are normal sized. Pericardium/Pleural * There is no pericardial effusion. Great Vessels * Normal inferior vena cava size and collapsability with sniff indicates a normal right atrial pressure of 3 mmHg Left Ventricular Diastolic Function * Diastolic dysfunction MMode 2D Measurements and Calculations IVSd 1.3 cm IVSs 2.2 cm LVIDd 3.8 cm LVIDs 2.5 cm LVPWd 1.6 cm LVPWs 1.8 cm IVS/LVPW 0.80 FS 34.6 % EDV(Teich) 61.7 ml ESV(Teich) 21.9 ml EF(Teich) 64.5 % EDV(cubed) 54.5 ml ESV(cubed) 15.3 ml EF(cubed) 72.0 % % IVS thick 68.1 % % LVPW thick 13.6 % LV mass(C)d 204.8 grams LV mass(C)dI 89.7 grams/m\S\2 LV mass(C)s 214.2 grams LV mass(C)sI 93.8 grams/m\S\2 CO(Teich) 2.9 l/min CI(Teich) 1.3 l/min/m\S\2 SV(Teich) 39.8 ml SI(Teich) 17.4 ml/m\S\2 CO(cubed) 2.9 l/min CI(cubed) 1.3 l/min/m\S\2 SV(cubed) 39.3 ml SI(cubed) 17.2 ml/m\S\2 ACS 1.2 cm asc Aorta Diam 3.8 cm LVAd ap4 31.2 cm\S\2 LVLd ap4 8.0 cm EDV(MOD-sp4) 100.0 ml LVAs ap4 18.1 cm\S\2 LVLs ap4 6.8 cm ESV(MOD-sp4) 38.9 ml EF(MOD-sp4) 61.1 % LVAd ap2 32.9 cm\S\2 LVLd ap2 7.8 cm EDV(MOD-sp2) 113.0 ml LVAs ap2 19.9 cm\S\2 LVLs ap2 7.4 cm ESV(MOD-sp2) 43.8 ml EF(MOD-sp2) 61.2 % CO(MOD-sp4) 4.5 l/min CI(MOD-sp4) 2.0 l/min/m\S\2 SV(MOD-sp4) 61.1 ml SI(MOD-sp4) 26.8 ml/m\S\2 CO(MOD-sp2) 5.1 l/min CI(MOD-sp2) 2.2 l/min/m\S\2 SV(MOD-sp2) 69.2 ml SI(MOD-sp2) 30.3 ml/m\S\2 Doppler Measurements and Calculations MV E max adalberto 70.3 cm/sec MV A max adalberto 64.5 cm/sec MV E/A 1.1 MV dec time 0.23 sec Ao V2 max 137.7 cm/sec Ao max PG 7.6 mmHg Ao max PG (full) 3.3 mmHg LV V1 max PG 4.3 mmHg LV V1 max 103.8 cm/sec PA V2 max 56.3 cm/sec PA max PG 1.3 mmHg TR max adalberto 250.2 cm/sec
--- NOTE | 2016-09-03 10:20 | Cardiology Consultation ---
Cardiology Consultation Date of Consultation: Sep 03, 2016. Requesting Physician: Dr. Yadav Reason for Consultation: Atrial fibrillation, positive cardiac enzymes Pt evaluation today including: conversation w/ patient, physical exam, lab review, review of studies, review of inpatient medication list History of Present Illness This is an 81-year-old male who has a history of COPD for which he has home oxygen. He presented with continuous shortness of breath on 09/02/2016. He was also complaining of extreme difficulty with exertion, much more than usual. When specifically asked about a rapid heart rate he was not terribly aware of it , but reiterates that he was having difficulty with exertion and feeling "congested". He recalls having atrial fibrillation in the past, but he doesn't know details. He also recalls being on warfarin in the past but doesn't know why or why he stopped it (he isn't keen on taking anticoagulation but is willing ). He specifically denies exertional chest discomfort to suggest angina. Evaluation includes cardiac enzymes which were slightly elevated, peaking at 0.115 shortly after admission. Creatinine is also elevated, 1.8 today. 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 Past Medical/Surgical History (1) Prostate cancer (2) Acute on chronic kidney failure (3) Atrial fibrillation with RVR (4) COPD exacerbation Family History Patient reports no known family medical history. Social History Smoking Status: Former Smoker (quit 1991) History of Alcohol Use: No Review of Systems Constitutional: No fever, No weight loss, No weakness Respiratory: + see HPI, + shortness of breath, + dyspnea on exertion, No cough , No wheezing Cardiac: + see HPI, + palpitations, No chest pain, No orthopnea, No PND, No edema Abdomen: No pain, No nausea, No vomiting, No diarrhea, No GI bleeding Male : No urinary frequency, No nocturia more than once/night, No slowing stream, No sexual dysfunction Neurologic: No paralysis, No weakness, No numbness/tingling, No balance problems Heme: No abnormal bleeding/bruising, No clotting problems Endo: No fatigue Skin: No problem reported All Other Systems: Reviewed and Negative Allergies Coded Allergies: No Known Allergies (Verified , 09/02/16) Medications Current Inpatient Medications Medications (Trade) Dose Ordered Sig/Reji Route Start Time Stop Time Status Last Admin Dose Admin Acetaminophen (Tylenol Tab) 650 mg Q4H PRN PO 09/02/16 14:00 10/02/16 13:59 Magnesium Hydroxide (Milk Of Magnesia Susp) 30 ml Q6H PRN PO 09/02/16 14:00 10/02/16 13:59 Ondansetron HCl (Zofran Inj) 4 mg Q6H PRN IV 09/02/16 14:00 10/02/16 13:59 Albuterol/ Ipratropium (Duoneb) 3 ml QIDR INH 09/02/16 16:00 10/02/16 15:59 09/03/16 06:59 3 ML Methylprednisolone Sodium Succinate 40 mg/Syringe 0.64 ml @ 1.5 mls/min Q8@0400,1200,2000 IV 09/02/16 20:00 10/02/16 19:59 09/03/16 04:55 1.5 MLS/MIN Bicalutamide (Casodex Tab) 50 mg DAILY PO 09/03/16 08:00 10/03/16 08:59 09/03/16 08:22 50 MG Budesonide/ Formoterol Fumarate (Symbicort 160/ 4.5 Inh) 2 puffs BID INH 09/02/16 20:00 10/02/16 20:59 09/03/16 08:21 2 PUFFS Donepezil HCl (Aricept Tab) 5 mg HS PO 09/02/16 21:00 10/02/16 20:59 09/02/16 20:04 5 MG Finasteride (Proscar Tab) 5 mg DAILY PO 09/03/16 08:00 10/03/16 08:59 09/03/16 08:23 5 MG Fluticasone Propionate (Flonase Nasal [place]) 1 sprays BID LIZETH 09/02/16 20:00 10/02/16 20:59 09/03/16 08:25 1 SPRAYS Furosemide (Lasix Tab) 40 mg DAILY PO 09/03/16 08:00 10/03/16 08:59 09/03/16 08:22 40 MG Loratadine (Claritin Tab) 10 mg DAILY PO 09/03/16 08:00 10/03/16 08:59 09/03/16 08:26 10 MG Metolazone (Zaroxolyn Tab) 2.5 mg TuFr@0800 PO 09/05/16 08:00 10/05/16 07:59 Metoprolol Succinate (Toprol Xl Tab) 12.5 mg DAILY PO 09/03/16 08:00 10/03/16 08:59 09/03/16 08:24 12.5 MG Oxycodone/ Acetaminophen (Percocet 5-325mg Tab) 1 tab Q6H PRN PO 09/02/16 14:00 09/16/16 13:59 Pantoprazole Sodium (Protonix Tab) 40 mg DAILY PO 09/03/16 08:00 10/03/16 08:59 09/03/16 08:25 40 MG Potassium Chloride (Klor-Con Tab) 20 meq DAILY PO 09/03/16 08:00 10/03/16 08:59 09/03/16 08:23 20 MEQ Propafenone HCl (Rythmol Tab) 150 mg Q8@0600,1400,2200 PO 09/02/16 16:00 10/02/16 15:59 09/03/16 05:40 150 MG Tamsulosin HCl (Flomax Cap) 0.4 mg DAILY PO 09/03/16 08:00 10/03/16 08:59 09/03/16 08:23 0.4 MG Thiamine HCl (Vitamin B-1 Tab) 100 mg DAILY PO 09/03/16 08:00 10/03/16 08:59 09/03/16 08:21 100 MG Cyanocobalamin (Vitamin B-12 Tab) 2,000 mcg DAILY PO 09/03/16 08:00 10/03/16 08:59 09/03/16 08:25 2,000 MCG Miscellaneous Information (Order Awaiting Action) 1 ea QS N/A 09/02/16 16:00 10/02/16 15:59 Mirtazapine (Remeron Solutab) 15 mg HS PO 09/02/16 21:00 10/02/16 20:59 09/02/16 20:03 15 MG Heparin Sodium/ Dextrose 500 ml @ 27 mls/hr [id number] PRN IV 09/02/16 19:00 10/02/16 18:59 09/03/16 06:51 27 MLS/HR Tiotropium [place] (Spiriva Handihaler Inhaler) 1 puff QAM INH 09/03/16 09:00 10/03/16 08:59 09/03/16 08:20 1 PUFF Doxycycline Hyclate (Vibramycin Cap) 100 mg BID PO 09/03/16 21:00 09/10/16 20:59 Potassium Chloride/Sodium Chloride 1,000 ml @ 70 mls/hr [id number] IV 09/03/16 09:45 10/03/16 09:44 Physical Exam Vital Signs Past 12 Hours Date Time Temp Pulse Resp B/P (MAP) Pulse Ox O2 Delivery O2 Flow Rate FiO2 09/03/16 07:53 36.0 69 22 105/67 (80) 92 Nasal Cannula 2.0 09/03/16 06:59 84 18 96 Nasal Cannula 4.0 09/03/16 05:16 36.3 72 98/52 (67) 93 Nasal Cannula 4.0 09/03/16 05:13 Nasal Cannula 4.0 09/03/16 05:02 78 16 93 Nasal Cannula 4.0 09/03/16 00:24 Nasal Cannula 2.0 09/03/16 00:11 36.8 88 20 127/72 (90) 93 Nasal Cannula 2.0 09/02/16 23:39 Nasal Cannula 2.0 Constitutional: General Apperance: heathly-appearing Level of Distress: NAD Psychiatric: Mental Status: active & alert Head: normocephalic Eyes: EOM: EOMI ENMT: normal ENT inspection, hearing grossly normal Neck: supple, no masses Lungs: Respiratory effort: no dyspnea, good air movement Auscultation: no wheezing, deminished air movement Cardiovascular: Heart Auscultation: RRR, no murmurs, no rubs, no gallops Peripheral Pulses: Bruits: none appreciated Abdomen: Bowel Sounds: normal Inspection & Palpation: soft, no tenderness, guarding & rebound, no masses Musculoskeletal: normal strength (5/5 throughout) Extremities: no edema Neurologic: Cranial Nerves: grossly intact Sensation: grossly intact Data Laboratory Results: Last 24 Hours Test 09/02/16 11:10 09/02/16 11:22 09/02/16 17:14 09/02/16 23:12 White Blood Count 8.35 K/uL Red Blood Count 4.73 M/uL Hemoglobin 14.5 g/dL Hematocrit 43.0 % Mean Corpuscular Volume 90.9 fL Mean Corpuscular Hemoglobin 30.7 pg Mean Corpuscular Hemoglobin Concent 33.7 g/dl Platelet Count 137 K/uL Mean Platelet Volume 12.0 fL Neutrophils (%) (Auto) 70.6 % Lymphocytes (%) (Auto) 15.6 % Monocytes (%) (Auto) 12.6 % Eosinophils (%) (Auto) 0.6 % Basophils (%) (Auto) 0.2 % Neutrophils # (Auto) 5.90 K/uL Lymphocytes # (Auto) 1.30 K/uL Monocytes # (Auto) 1.05 K/uL Eosinophils # (Auto) 0.05 K/uL Basophils # (Auto) 0.02 K/uL RDW Standard Deviation 42.8 fL RDW Coefficient of Variation 12.8 % Immature Granulocyte % (Auto) 0.4 % Immature Granulocyte # (Auto) 0.03 K/uL Prothrombin Time 12.6 SECONDS Prothromb Time International Ratio 1.2 Activated Partial Thromboplast Time 27.5 SECONDS Partial Thromboplastin Ratio 1.1 Sodium Level 135 mmol/L Potassium Level 3.2 mmol/L Chloride Level 95 mmol/L Carbon Dioxide Level 27 mmol/L Anion Gap 13.0 mmol/L Blood Urea Nitrogen 28 mg/dl Creatinine 2.10 mg/dl Est Creatinine Clear Calc Drug Dose 35.1 ml/min Estimated GFR () 33.4 Estimated GFR (Non- 28.9 BUN/Creatinine Ratio 13.1 Random Glucose 114 mg/dl Calcium Level 8.6 mg/dl Magnesium Level 1.7 mg/dl Chemistry Specimen Hemolysis Bedside Troponin I 0.060 ng/ml Troponin I 0.115 ng/ml 0.072 ng/ml Test 09/03/16 02:04 09/03/16 04:14 09/03/16 05:11 09/03/16 07:38 Activated Partial Thromboplast Time 152.2 SECONDS 82.9 SECONDS 61.9 SECONDS Partial Thromboplastin Ratio 5.9 3.2 2.4 White Blood Count 6.49 K/uL Red Blood Count 3.88 M/uL Hemoglobin 12.1 g/dL Hematocrit 34.7 % Mean Corpuscular Volume 89.4 fL Mean Corpuscular Hemoglobin 31.2 pg Mean Corpuscular Hemoglobin Concent 34.9 g/dl RDW Standard Deviation 40.9 fL RDW Coefficient of Variation 12.7 % Platelet Count 103 K/uL Mean Platelet Volume 11.2 fL Sodium Level 137 mmol/L Potassium Level 3.2 mmol/L Chloride Level 98 mmol/L Carbon Dioxide Level 29 mmol/L Anion Gap 10.0 mmol/L Blood Urea Nitrogen 41 mg/dl Creatinine 1.80 mg/dl Est Creatinine Clear Calc Drug Dose 40.9 ml/min Estimated GFR () 40.3 Estimated GFR (Non- 34.8 BUN/Creatinine Ratio 23.0 Random Glucose 204 mg/dl Calcium Level 7.2 mg/dl Magnesium Level 1.9 mg/dl Imaging: Echocardiogram is done, result pending EKG: On admission atrial fibrillation with a rapid ventricular response, bifascicular block Telemetry reviewed: Atrial fibrillation initially, rate better controlled after admission. Although it is difficult to tell he may have converted to sinus recently. Assessment & Plan #1. Shortness of breath and difficulty with exertion: Although certainly a large component of this is his COPD, the identification of atrial fibrillation on arrival suggests that that may be a component as well. The arrhythmia appears to be paroxysmal. I would recommend treating his atrial fibrillation as well as his COPD GERD #2. Paroxysmal atrial fibrillation: He appears to have had atrial fibrillation on arrival, this appears to have resolved although on telemetry is little difficult to tell. He has a lot of rate variability and apparently has MAT or wandering atrial pacemaker as well and there is no abrupt change in rhythm although his heart rate is now well controlled. I would recommend treating him with rate control medications (diltiazem might be better then beta-blockade with his lung disease) as well as anticoagulation. He has been on warfarin would prefer not to take it, I would recommend using eliquis. #3. Positive troponin: He may have coronary artery disease, however with his rapid heart rate and probable hypoxia that would explain a slight enzyme rise. His creatinine being elevated also contributes to the elevation. He had no symptoms to suggest angina. I would not consider evaluation at this time. Thank you for allowing me to participate in his care.
[2016-09-03] MEDS: SODIUM CHLOR 0.45% + 20MEQ KCL 1,000 ML IV SCH ×2 (11:19→23:59)
[2016-09-03 11:26] LABS: PARTIAL THROMBOPLASTIN RATIO 2.3
[2016-09-03] MEDS ORDERED: NURSING VERBAL MED ORDER ONE (18:45)
[2016-09-03] MEDS: DOXYCYCLINE HYCLATE 100 MG CAP PO SCH (21:06)
[2016-09-03] MEDS: DONEPEZIL HCL 5 MG TAB PO SCH (21:06)
[2016-09-03] MEDS: MIRTAZAPINE SOLTAB 15 MG PO SCH (21:07)
[2016-09-03] MEDS ORDERED: COUGH DROP (SUGAR FREE) LOZ 24 LOZ/1 BOX PO PRN (23:45)
[2016-09-03] MEDS ORDERED: NURSING DECISION MEDICATION ORDER SCH (23:45)
[2016-09-04] VITALS (10 sets, daily range): BP systolic 106–160; BP diastolic 65–88; PULSE 77–101; TEMP 36.4–36.6; O2SAT 90–98
[2016-09-04] MEDS ORDERED: GUAIFENESIN/CODEINE 100MG/10MG 5ML UDC PO STA (03:59)
[2016-09-04] MEDS: METHYLPREDNISOLONE IV 40 MG in SYRINGE 0 ML IV SCH ×2 (04:03→15:27)
[2016-09-04] MEDS: ALBUT/IPRATROP 3MG/0.5MG NEB 3 ML VIAL INH SCH ×5 (04:23→20:12)
[2016-09-04] MEDS: PROPAFENONE HCL 150 MG TAB PO SCH ×3 (05:45→21:12)
[2016-09-04 07:39] LABS: PARTIAL THROMBOPLASTIN RATIO 1.1
[2016-09-04] MEDS: TIOTROPIUM BROMIDE 5 PUFF/90 MCG INH INH SCH (07:45)
[2016-09-04] MEDS: FLUTICASONE PROPIONATE NA SPR 16 GM BTL NAE SCH ×2 (07:45→21:10)
[2016-09-04] MEDS: BUDESONIDE/FORMOTEROL FUMARATE 160/4.5 60 PUFFS/INHALER INH SCH ×2 (07:45→21:10)
[2016-09-04] MEDS: FUROSEMIDE 40 MG TAB PO SCH (07:46)
[2016-09-04] MEDS: PANTOprazole SOD 40 MG TAB PO SCH (07:47)
[2016-09-04] MEDS: LORATADINE 10 MG TAB PO SCH (07:47)
[2016-09-04] MEDS: THIAMINE HCL 100 MG TAB PO SCH (07:47)
[2016-09-04] MEDS: DOXYCYCLINE HYCLATE 100 MG CAP PO SCH ×2 (07:47→21:13)
[2016-09-04] MEDS: METOPROLOL SUCC 25MG EXT REL TAB PO SCH (07:47)
[2016-09-04] MEDS: FINASTERIDE 5 MG TAB PO SCH (07:47)
[2016-09-04] MEDS: CYANOCOBALAMIN 500 MCG TAB (VIT B-12) PO SCH (07:48)
[2016-09-04] MEDS: TAMSULOSIN HCL 0.4 MG CAP PO SCH (07:48)
[2016-09-04] MEDS: BICALUTAMIDE 50 MG TAB PO SCH (07:52)
[2016-09-04] MEDS: POTASSIUM CHLORIDE 20 MEQ TABCR PO SCH (08:00)
[2016-09-04] MEDS ORDERED: ERGOCALCIFEROL 50,000 INTER.UNIT CAP PO SCH (09:00)
[2016-09-04] MEDS ORDERED: CHOLECALCIFEROL 1000 INTER.UNIT TAB PO SCH (09:00)
--- NOTE | 2016-09-04 09:34 | Cardiology Follow-Up ---
Subjective Date of Service: Sep 04, 2016. Pt evaluation today including: conversation w/ patient, physical exam, lab review, review of studies, review of inpatient medication list History of Present Illness This is an 81-year-old male who has a history of COPD for which he has home oxygen. He presented with continuous shortness of breath on 09/02/2016. He was also complaining of extreme difficulty with exertion, much more than usual. When specifically asked about a rapid heart rate he was not terribly aware of it , but reiterates that he was having difficulty with exertion and feeling "congested". He recalls having atrial fibrillation in the past, but he doesn't know details. He also recalls being on warfarin in the past but doesn't know why or why he stopped it (he isn't keen on taking anticoagulation but is willing ). He specifically denies exertional chest discomfort to suggest angina. Evaluation includes cardiac enzymes which were slightly elevated, peaking at 0.115 shortly after admission. Creatinine is also elevated, 1.8 today. 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 He feels better today although is still complaining of TAVERA but mostly of nasal congestion. Social History Smoking Status: Former Smoker (quit 1991) History of Alcohol Use: No Review of Systems Respiratory: + see HPI, + shortness of breath, + dyspnea on exertion, No cough , No wheezing Cardiac: + see HPI, + palpitations, No chest pain, No orthopnea, No PND, No edema Medications Cardiovascular: Item Value Date Time Metolazone 2.5 mg 09/05/16 0800 (Zaroxolyn Tab) TuFr@0800/PO Furosemide 40 mg 09/03/16 0800 (Lasix Tab) DAILY/PO 09/04/16 0746 Metoprolol 12.5 mg 09/03/16 0800 Succinate DAILY/PO 09/04/16 0747 (Toprol Xl Tab) Objective Vital Signs Past 12 Hours Date Time Temp Pulse Resp B/P (MAP) Pulse Ox O2 Delivery O2 Flow Rate FiO2 09/04/16 08:00 Nasal Cannula 2.0 09/04/16 07:27 84 18 92 Nasal Cannula 4.0 09/04/16 07:17 36.4 82 20 122/79 (93) 95 Nasal Cannula 2.0 09/04/16 04:23 81 20 91 Nasal Cannula 4.0 09/04/16 04:00 Nasal Cannula 2.0 09/04/16 00:00 Nasal Cannula 2.0 09/03/16 23:42 36.6 87 22 124/73 (90) 93 Nasal Cannula 4.0 Last Recorded Weight-Kilograms: 116.300 Physical Exam Constitutional: General Apperance: heathly-appearing Level of Distress: NAD Lungs: Respiratory effort: no dyspnea, good air movement Auscultation: no wheezing, deminished air movement Cardiovascular: Heart Auscultation: RRR, no murmurs, no rubs, no gallops Peripheral Pulses: Bruits: none appreciated Extremities: no edema Data Laboratory Results: Last 24 Hours Test 09/03/16 10:54 09/04/16 06:35 09/04/16 08:20 Activated Partial Thromboplast Time 59.0 SECONDS 28.0 SECONDS Partial Thromboplastin Ratio 2.3 1.1 25-Hydroxy Vitamin D Total 7.3 ng/ml Imaging: Echo shows normal LV function Assessment and Plan #1. Shortness of breath and difficulty with exertion: Although certainly a large component of this is his COPD, the identification of atrial fibrillation on arrival suggests that that may have been a component as well. The arrhythmia appears to be paroxysmal. I would recommend treating his atrial fibrillation as well as his COPD. #2. Paroxysmal atrial fibrillation: He appears to have had atrial fibrillation on arrival (MAT is a possibility), this appears to have resolved although on telemetry is little difficult to tell if he has any. He has a lot of rate variability and apparently has MAT or wandering atrial pacemaker as well and there is no abrupt change in rhythm with termination of his initial arrhythmia although his heart rate is now well controlled. I would recommend treating him with rate control medications (diltiazem might be better then beta-blockade with his lung disease) as well as anticoagulation. He has been on warfarin would prefer not to take it, I would recommend using eliquis. He is in SR now so there is no urgency to start it. #3. Positive troponin: He may have coronary artery disease, however with his rapid heart rate and probable hypoxia that would explain a slight enzyme rise. His creatinine is also elevated, this contributes to the Troponin elevation. He had no symptoms to suggest angina. I would not consider evaluation at this time. Thank you for allowing me to participate in his care.
[2016-09-04] MEDS: HEPARIN SOD 5000 UNIT/0.5 ML CARP SQ SCH ×2 (09:45→21:16)
[2016-09-04 10:00] LABS: CALCIUM 7.6 mg/dl (8.5-10.1); CREATININE 1.5 mg/dl (0.60-1.40); POTASSIUM 3.4 mmol/L (3.5-5.1)
--- NOTE | 2016-09-04 11:40 | Hospitalist Progress Note ---
Hospitalist Progress Note Date of Service Sep 04, 2016. (Nancy Luong ., COLLEENC) Subjective Pt evaluation today including: conversation w/ patient, physical exam, chart review, lab review, review of studies, review of inpatient medication list Voiding: no voiding problems, no incontinence Patient states he is feeling better today. +productive cough- yellow/green sputum. SOB improving. Patient denies any fever, chills, sweats, lightheadedness, dizziness, vision changes, CP, palpitations, edema, wheezing, abdominal pain, nausea, vomiting, diarrhea, urinary symptoms, melena, numbness/tingling, weakness, muscle/joint pain, anxiety/depression, active bleeding, or new skin discoloration/changes. (Nancy Luong ., COLLEENC) Medications Current Inpatient Medications Medications (Trade) Dose Ordered Sig/Reji Route Start Time Stop Time Status Last Admin Dose Admin Acetaminophen (Tylenol Tab) 650 mg Q4H PRN PO 09/02/16 14:00 10/02/16 13:59 Magnesium Hydroxide (Milk Of Magnesia Susp) 30 ml Q6H PRN PO 09/02/16 14:00 10/02/16 13:59 Ondansetron HCl (Zofran Inj) 4 mg Q6H PRN IV 09/02/16 14:00 10/02/16 13:59 Albuterol/ Ipratropium (Duoneb) 3 ml QIDR INH 09/02/16 16:00 10/02/16 15:59 09/04/16 11:13 3 ML Methylprednisolone Sodium Succinate 40 mg/Syringe 0.64 ml @ 1.5 mls/min Q8@0400,1200,2000 IV 09/02/16 20:00 10/02/16 19:59 09/04/16 04:03 1.5 MLS/MIN Bicalutamide (Casodex Tab) 50 mg DAILY PO 09/03/16 08:00 10/03/16 08:59 09/04/16 07:52 50 MG Budesonide/ Formoterol Fumarate (Symbicort 160/ 4.5 Inh) 2 puffs BID INH 09/02/16 20:00 10/02/16 20:59 09/04/16 07:45 2 PUFFS Donepezil HCl (Aricept Tab) 5 mg HS PO 09/02/16 21:00 10/02/16 20:59 09/03/16 21:06 5 MG Finasteride (Proscar Tab) 5 mg DAILY PO 09/03/16 08:00 10/03/16 08:59 09/04/16 07:47 5 MG Fluticasone Propionate (Flonase Nasal [place]) 1 sprays BID LIZETH 09/02/16 20:00 10/02/16 20:59 09/04/16 07:45 1 SPRAYS Furosemide (Lasix Tab) 40 mg DAILY PO 09/03/16 08:00 10/03/16 08:59 09/04/16 07:46 40 MG Loratadine (Claritin Tab) 10 mg DAILY PO 09/03/16 08:00 10/03/16 08:59 09/04/16 07:47 10 MG Metolazone (Zaroxolyn Tab) 2.5 mg TuFr@0800 PO 09/05/16 08:00 10/05/16 07:59 Metoprolol Succinate (Toprol Xl Tab) 12.5 mg DAILY PO 09/03/16 08:00 10/03/16 08:59 09/04/16 07:47 12.5 MG Oxycodone/ Acetaminophen (Percocet 5-325mg Tab) 1 tab Q6H PRN PO 09/02/16 14:00 09/16/16 13:59 Pantoprazole Sodium (Protonix Tab) 40 mg DAILY PO 09/03/16 08:00 10/03/16 08:59 09/04/16 07:47 40 MG Propafenone HCl (Rythmol Tab) 150 mg Q8@0600,1400,2200 PO 09/02/16 16:00 10/02/16 15:59 09/04/16 05:45 150 MG Tamsulosin HCl (Flomax Cap) 0.4 mg DAILY PO 09/03/16 08:00 10/03/16 08:59 09/04/16 07:48 0.4 MG Thiamine HCl (Vitamin B-1 Tab) 100 mg DAILY PO 09/03/16 08:00 10/03/16 08:59 09/04/16 07:47 100 MG Cyanocobalamin (Vitamin B-12 Tab) 2,000 mcg DAILY PO 09/03/16 08:00 10/03/16 08:59 09/04/16 07:48 2,000 MCG Miscellaneous Information (Order Awaiting Action) 1 ea QS N/A 09/02/16 16:00 10/02/16 15:59 Mirtazapine (Remeron Solutab) 15 mg HS PO 09/02/16 21:00 10/02/16 20:59 09/03/16 21:07 15 MG Tiotropium [place] (Spiriva Handihaler Inhaler) 1 puff QAM INH 09/03/16 09:00 10/03/16 08:59 09/04/16 07:45 1 PUFF Doxycycline Hyclate (Vibramycin Cap) 100 mg BID PO 09/03/16 21:00 09/10/16 20:59 09/04/16 07:47 100 MG Potassium Chloride/Sodium Chloride 1,000 ml @ 70 mls/hr [id number] IV 09/03/16 09:45 10/03/16 09:44 09/03/16 23:59 70 MLS/HR Menthol (Nice Donna) 1 donna PRN PRN PO 09/03/16 23:45 10/03/16 23:44 09/03/16 23:59 1 DONNA Potassium Chloride (Klor-Con Tab) 40 meq DAILY PO 09/04/16 09:00 10/03/16 08:59 09/04/16 08:00 40 MEQ Ergocalciferol (Vitamin D Cap) 50,000 interunit Mo@0900 PO 09/04/16 09:00 10/04/16 08:59 09/04/16 07:59 50,000 INTERUNIT Cholecalciferol (Vitamin D Tab) 4,000 inter.unit QAM PO 09/05/16 09:00 10/05/16 08:59 Heparin Sodium (Porcine) (Heparin Sq 5000 Unit/0.5ml) 5,000 unit Q12 SQ 09/04/16 09:00 10/04/16 08:59 09/04/16 09:45 5,000 UNIT (Nancy Luong PA-C) Objective Vital Signs Date Time Temp Pulse Resp B/P (MAP) Pulse Ox O2 Delivery O2 Flow Rate FiO2 09/04/16 11:13 84 18 94 Nasal Cannula 4.0 09/04/16 08:00 Nasal Cannula 2.0 09/04/16 07:27 84 18 92 Nasal Cannula 4.0 09/04/16 07:17 36.4 82 20 122/79 (93) 95 Nasal Cannula 2.0 09/04/16 04:23 81 20 91 Nasal Cannula 4.0 09/04/16 04:00 Nasal Cannula 2.0 09/04/16 00:00 Nasal Cannula 2.0 09/03/16 23:42 36.6 87 22 124/73 (90) 93 Nasal Cannula 4.0 09/03/16 20:01 36.5 86 20 113/67 (82) 96 4.0 09/03/16 20:00 92 Nasal Cannula 2.0 09/03/16 19:00 84 18 95 Nasal Cannula 4.0 09/03/16 16:05 92 Nasal Cannula 2.0 09/03/16 15:19 86 18 96 Nasal Cannula 4.0 09/03/16 14:47 36.5 83 20 127/59 (81) 95 Nasal Cannula 2.0 09/03/16 12:00 95 Nasal Cannula 2.0 09/03/16 11:19 78 18 95 Nasal Cannula 4.0 (Nancy Luong ., PA-C) Physical Exam General Appearance: no apparent distress, + obese, + pertinent finding (4L O2 NC) Eyes: normal inspection, PERRL ENT: hearing grossly normal Neck: supple Respiratory/Chest: no respiratory distress, no accessory muscle use, + decreased breath sounds (diffuse, >bilateral lung bases ), + rhonchi, + wheezing Cardiovascular: regular rate, rhythm Abdomen: normal bowel sounds, non tender, soft Extremities: no pedal edema, no calf tenderness, + pertinent finding (Chronic stasis dermatitis changes noted to bilateral anterior shins ) Neurologic/Psychiatric: alert, normal mood/affect, oriented x 3 Skin: normal color, warm/dry, no rash (Nancy Luong ., PA-C) Laboratory Results Last 24 Hours Test 09/04/16 06:35 Activated Partial Thromboplast Time 28.0 SECONDS Partial Thromboplastin Ratio 1.1 Sodium Level 138 mmol/L Potassium Level 3.4 mmol/L Chloride Level 101 mmol/L Carbon Dioxide Level 28 mmol/L Anion Gap 9.0 mmol/L Blood Urea Nitrogen 38 mg/dl Creatinine 1.50 mg/dl Est Creatinine Clear Calc Drug Dose 50.2 ml/min Estimated GFR () 50.2 Estimated GFR (Non- 43.3 BUN/Creatinine Ratio 25.0 Random Glucose 140 mg/dl Calcium Level 7.6 mg/dl (Nancy Luong, PA-C) Assessment and Plan 81 y/o M with multiple medical complaints. Pt states that he has been SOB both at rest and with exertion. He states he has home O2, but is uncertain if he is supposed to be wearing it continuously and cannot really tell me if he does. Hypoxia, secondary to chronic respiratory failure/acute exacerbation of COPD/ emphysema- IMPROVING: - Admitted to the [facility] for cardiac monitoring - DuoNebs QID and Spiriva - IV Solu-Medrol 40 mg q8- will decrease to BID and continue to wean - O2 protocol, wean as tolerated- patient has home O2 but unsure of when to use/ L required - Doxycycline 100 mg BID (started on 09/03) Elevated troponin, likely secondary to demand ischemia from hypoxia and ARF - Trended cardiac enzymes- peak trop 0.115 - ECHO- Grossly normal LV size, mild concentric LVH. Normal LV systolic function. LVEF 55-60%. No apparent regional wall motion abnormalities. RV not well visualized. Grossly normal size and function. No significant valvular pathology. - Consulted cardiology, appreciate recommendations- no further workup/ intervention at this time Paroxysmal marcelino- currently NSR: - Continue Metoprolol 12.5 mg daily, Rythmol 150 mg TID - Cardiology recommending Valdo- discussed w/ patient, unsure if wants to start this medication Chronic diastolic CHF: Metolazone 2.5 mg on Tu/Sun, Lasix 40 mg daily ARF, baseline Cr. ~1.5- IMPROVING: Treated w/ IVF Vitamin D deficiency at 7.3- start 50,000 IU weekly and 4,000 IU daily Hypokalemia: Replace in IVF and 40 mEq KCL daily HTN- CONTROLLED: Continue Metoprolol as above Dementia: Aricept 5 mg HS, Remeron 15 mg HS Metastatic prostate cancer- no chemo or radiation: Continue Tamsulosin 0.4 mg HS and Finasteride 5 mg daily, Casodex 50 mg daily GI Prophylaxis: Protonix, Maalox PRN, IV Zofran PRN, Colace and/or Milk of Mag PRN DVT prophylaxis: Heparin Code Status: LEVEL I, FULL Dispo: Lives at home w/ ex-- social media editor consulted - PT/OT evaluations pending (Nancy Luong, ISABEL) I personally examined pt and verified all villas[place] points w Virgie Luong PA-C feeling better coughing up more sputum breathing easier reticent to take meds for afib partly because of having been on blood thinners before but also partly just because he notes "i take 25 pills in the morning" -- discussed ? duplication as he notes that he has meds from his P[facility], [facility], meds from cardiology, etc. was participant in [employer] study, detective investigator noted that during geriatric depression scale he got teary eyed. ROS otherwise negative except for as above vitals note nad breathing unlabored lungs better air entry coarse rhonchi but improved no wheeze good effort, no pallor or icterus severe COPD w acute exacerbation and appearance of probably acute on chronic respiratory failure - doing better w current med regimen, wean steroids, continue doxy, continue O2 afib/MAT - rate control - for now verapamil, follow, declines anticoagulation for now will continue to discuss polypharmacy- notes taking 25 pills at home - counted 16 pills (and additional inhalers, a few meds prn) but concern on mixed med lists/therapeutic duplication /etc. will try to narrow down meds here (unclear if he needs PPI, vitamins, etc ) and also try to discharge with definitive list for home nursing to review and try to ensure he's taking the right things once he's home (Andrea Asencio D.O.)
[2016-09-04] MEDS ORDERED: VERAPAMIL HCL 40 MG TAB PO SCH (21:00)
[2016-09-04] MEDS: MIRTAZAPINE SOLTAB 15 MG PO SCH (21:12)
[2016-09-04] MEDS: DONEPEZIL HCL 5 MG TAB PO SCH (21:12)
[2016-09-05] VITALS (9 sets, daily range): BP systolic 103–148; BP diastolic 63–90; PULSE 54–95; TEMP 36.3–36.4; O2SAT 92–97
[2016-09-05] MEDS: METHYLPREDNISOLONE IV 40 MG in SYRINGE 0 ML IV SCH ×2 (04:14→16:15)
[2016-09-05 06:08] LABS: HEMATOCRIT 32.5 % (42-52); MEAN CELL VOLUME 89.3 fL (80-100); MEAN CORPUSCULAR HEMOGLOBIN 29.7 pg (25-34); MEAN CORPUSCULAR HGB CONC 33.2 g/dl (32-36); MEAN PLATELET VOLUME 10.9 fL (7.4-10.4); PLATELET COUNT 137 K/uL (130-400); RED BLOOD COUNT 3.64 M/uL (4.7-6.1); WHITE BLOOD COUNT 6.81 K/uL (4.8-10.8)
[2016-09-05] MEDS: PROPAFENONE HCL 150 MG TAB PO SCH ×3 (06:13→21:19)
[2016-09-05 06:45] LABS: BUN/CREATININE RATIO 28.3 (10-20); CREATININE 1.3 mg/dl (0.60-1.40); POTASSIUM 3.7 mmol/L (3.5-5.1)
[2016-09-05] MEDS: ALBUT/IPRATROP 3MG/0.5MG NEB 3 ML VIAL INH SCH ×4 (07:15→19:10)
[2016-09-05] MEDS: TIOTROPIUM BROMIDE 5 PUFF/90 MCG INH INH SCH (07:45)
[2016-09-05] MEDS: BUDESONIDE/FORMOTEROL FUMARATE 160/4.5 60 PUFFS/INHALER INH SCH ×2 (07:46→21:00)
[2016-09-05] MEDS: THIAMINE HCL 100 MG TAB PO SCH (07:48)
[2016-09-05] MEDS: FLUTICASONE PROPIONATE NA SPR 16 GM BTL NAE SCH ×2 (07:48→21:11)
[2016-09-05] MEDS: LORATADINE 10 MG TAB PO SCH (07:48)
[2016-09-05] MEDS: DOXYCYCLINE HYCLATE 100 MG CAP PO SCH ×2 (07:49→21:13)
[2016-09-05] MEDS: CYANOCOBALAMIN 500 MCG TAB (VIT B-12) PO SCH (07:49)
[2016-09-05] MEDS: METOPROLOL SUCC 25MG EXT REL TAB PO SCH (07:50)
[2016-09-05] MEDS: PANTOprazole SOD 40 MG TAB PO SCH (07:50)
[2016-09-05] MEDS: FINASTERIDE 5 MG TAB PO SCH (07:51)
[2016-09-05] MEDS: CHOLECALCIFEROL 1000 INTER.UNIT TAB PO SCH (07:51)
[2016-09-05] MEDS: FUROSEMIDE 40 MG TAB PO SCH (07:51)
[2016-09-05] MEDS: POTASSIUM CHLORIDE 20 MEQ TABCR PO SCH (07:51)
[2016-09-05] MEDS: TAMSULOSIN HCL 0.4 MG CAP PO SCH (07:52)
[2016-09-05] MEDS: BICALUTAMIDE 50 MG TAB PO SCH (07:57)
[2016-09-05] MEDS: HEPARIN SOD 5000 UNIT/0.5 ML CARP SQ SCH ×2 (07:57→21:15)
[2016-09-05] MEDS ORDERED: METOLAZONE 2.5 MG TAB PO SCH (08:00)
--- NOTE | 2016-09-05 09:20 | Cardiology Follow-Up ---
Subjective Date of Service: Sep 05, 2016. Pt evaluation today including: conversation w/ patient, physical exam, lab review, review of studies, review of inpatient medication list, conversation w/ attending History of Present Illness This is an 81-year-old male who has a history of COPD for which he has home oxygen. He presented with continuous shortness of breath on 09/02/2016. He was also complaining of extreme difficulty with exertion, much more than usual. When specifically asked about a rapid heart rate he was not terribly aware of it , but reiterates that he was having difficulty with exertion and feeling "congested". He recalls having atrial fibrillation in the past, but he doesn't know details. He also recalls being on warfarin in the past but doesn't know why or why he stopped it (he isn't keen on taking anticoagulation but is willing ). He specifically denies exertional chest discomfort to suggest angina. Evaluation includes cardiac enzymes which were slightly elevated, peaking at 0.115 shortly after admission. Creatinine is also elevated, 1.8 today. 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 He feels better today although is still complaining of TAVERA but mostly of nasal congestion. He has no sensation of his arrhythmia, no palpitations. He has no chest discomfort. He is tolerating his current medications well. Social History Smoking Status: Former Smoker (quit 1991) History of Alcohol Use: No Review of Systems Respiratory: + see HPI, + shortness of breath, + dyspnea on exertion, No cough , No wheezing Cardiac: + see HPI, + palpitations, No chest pain, No orthopnea, No PND, No edema Medications Cardiovascular: Item Value Date Time Metolazone 2.5 mg 09/05/16 0800 (Zaroxolyn Tab) TuFr@0800/PO 09/05/16 0747 Potassium Chloride 40 meq 09/04/16 0900 (Klor-Con Tab) DAILY/PO 09/05/16 0751 Furosemide 40 mg 09/03/16 0800 (Lasix Tab) DAILY/PO 09/05/16 0751 Metoprolol 12.5 mg 09/03/16 0800 Succinate DAILY/PO 09/05/16 0750 (Toprol Xl Tab) Propafenone HCl 150 mg 09/02/16 1600 (Rythmol Tab) Q8@0600,1400,2200/PO 09/05/16 0613 Objective Vital Signs Past 12 Hours Date Time Temp Pulse Resp B/P (MAP) Pulse Ox O2 Delivery O2 Flow Rate FiO2 09/05/16 07:15 64 18 96 Nasal Cannula 3.0 09/05/16 07:00 36.3 54 18 111/63 (79) 95 Room Air 09/05/16 04:00 Nasal Cannula 3.0 09/05/16 00:00 Nasal Cannula 3.0 09/04/16 23:39 36.6 85 18 106/65 (79) 90 Nasal Cannula 4.0 Last Recorded Weight-Kilograms: 116.300 Physical Exam Constitutional: General Apperance: heathly-appearing Level of Distress: NAD Lungs: Respiratory effort: no dyspnea, good air movement Auscultation: deminished air movement, expiratory wheezing Cardiovascular: Heart Auscultation: RRR, no murmurs, no rubs, no gallops Peripheral Pulses: Bruits: none appreciated Extremities: no edema Data Laboratory Results: Last 24 Hours Test 09/05/16 05:48 White Blood Count 6.81 K/uL Red Blood Count 3.64 M/uL Hemoglobin 10.8 g/dL Hematocrit 32.5 % Mean Corpuscular Volume 89.3 fL Mean Corpuscular Hemoglobin 29.7 pg Mean Corpuscular Hemoglobin Concent 33.2 g/dl RDW Standard Deviation 41.9 fL RDW Coefficient of Variation 13.0 % Platelet Count 137 K/uL Mean Platelet Volume 10.9 fL Activated Partial Thromboplast Time 27.2 SECONDS Partial Thromboplastin Ratio 1.0 Sodium Level 139 mmol/L Potassium Level 3.7 mmol/L Chloride Level 102 mmol/L Carbon Dioxide Level 30 mmol/L Anion Gap 7.0 mmol/L Blood Urea Nitrogen 37 mg/dl Creatinine 1.30 mg/dl Est Creatinine Clear Calc Drug Dose 57.9 ml/min Estimated GFR () 59.7 Estimated GFR (Non- 51.5 BUN/Creatinine Ratio 28.3 Random Glucose 143 mg/dl Telemetry reviewed: Generally sinus rhythm with PACs, however at around 1 AM this morning there is a sudden increase in heart rate very suggestive of atrial fibrillation. It could be MAT, it is difficult to tell. It was fairly brief in duration. Assessment and Plan #1. Shortness of breath and difficulty with exertion: Although certainly a large component of this is his COPD, the identification of atrial fibrillation on arrival suggests that that may have been a component as well. The arrhythmia appears to be paroxysmal and relatively brief. I would recommend treating his atrial fibrillation as well as his COPD. #2. Paroxysmal atrial fibrillation: He appears to have had atrial fibrillation on arrival (MAT is a possibility), this appears to have resolved although on telemetry is little difficult to tell if he has any recurrence. This morning I suspect he did have a brief episode, he has remained on Rythmol. He has a lot of rate variability and apparently has MAT or wandering atrial pacemaker as well although his heart rate is now well controlled for the most part. I would recommend treating him with rate control medications and continuing his Rythmol , as well as anticoagulation. He has been on warfarin would prefer not to take it, I would recommend using eliquis. He is a little bit reluctant but tentatively agreeable. He is in SR now and for the most part so there is no urgency to start it. Since I will not be following him it might be better for him to see his investment representative in [place] to arrange anticoagulation, he knows to see him in the near future (in the next week or so). The risk of being off of anticoagulation for that short time is minimal. #3. Positive troponin: He may have coronary artery disease, however with his rapid heart rate and probable hypoxia that would explain a slight enzyme rise. His creatinine is also elevated, this contributes to the Troponin elevation. He had no symptoms to suggest angina. I would not consider evaluation at this time. Thank you for allowing me to participate in his care.
--- NOTE | 2016-09-05 10:42 | Hospitalist Progress Note ---
Hospitalist Progress Note Date of Service Sep 05, 2016. (Nancy Luong ., PA-C) Subjective Pt evaluation today including: conversation w/ patient, conversation w/ family (Son, Kevin- on telephone; ex-, Syl- telephone ), physical exam, chart review, lab review, review of studies, conversation w/ managed services consultant (Dr. Felix ), review of inpatient medication list Voiding: no voiding problems, no incontinence Patient states he is feeling better this AM. He is eating and drinking OK. +productive cough w/ yellow/green sputum. +SOB- improving. Patient denies any fever, chills, sweats, lightheadedness, dizziness, vision changes, CP, palpitations, edema, wheezing, abdominal pain, nausea, vomiting, diarrhea, urinary symptoms, melena, numbness/tingling, weakness, muscle/joint pain, anxiety/depression, active bleeding, or new skin discoloration/changes. (Nancy Luong ., PA-C) Medications Current Inpatient Medications Medications (Trade) Dose Ordered Sig/Reji Route Start Time Stop Time Status Last Admin Dose Admin Acetaminophen (Tylenol Tab) 650 mg Q4H PRN PO 09/02/16 14:00 10/02/16 13:59 Magnesium Hydroxide (Milk Of Magnesia Susp) 30 ml Q6H PRN PO 09/02/16 14:00 10/02/16 13:59 Ondansetron HCl (Zofran Inj) 4 mg Q6H PRN IV 09/02/16 14:00 10/02/16 13:59 Albuterol/ Ipratropium (Duoneb) 3 ml QIDR INH 09/02/16 16:00 10/02/16 15:59 09/05/16 07:15 3 ML Bicalutamide (Casodex Tab) 50 mg DAILY PO 09/03/16 08:00 10/03/16 08:59 09/05/16 07:57 50 MG Budesonide/ Formoterol Fumarate (Symbicort 160/ 4.5 Inh) 2 puffs BID INH 09/02/16 20:00 10/02/16 20:59 09/05/16 07:46 2 PUFFS Donepezil HCl (Aricept Tab) 5 mg HS PO 09/02/16 21:00 10/02/16 20:59 09/04/16 21:12 5 MG Finasteride (Proscar Tab) 5 mg DAILY PO 09/03/16 08:00 10/03/16 08:59 09/05/16 07:51 5 MG Fluticasone Propionate (Flonase Nasal Adolphus) 1 sprays BID LIZETH 09/02/16 20:00 10/02/16 20:59 09/05/16 07:48 1 SPRAYS Furosemide (Lasix Tab) 40 mg DAILY PO 09/03/16 08:00 10/03/16 08:59 09/05/16 07:51 40 MG Loratadine (Claritin Tab) 10 mg DAILY PO 09/03/16 08:00 10/03/16 08:59 09/05/16 07:48 10 MG Metolazone (Zaroxolyn Tab) 2.5 mg TuFr@0800 PO 09/05/16 08:00 10/05/16 07:59 09/05/16 07:47 2.5 MG Metoprolol Succinate (Toprol Xl Tab) 12.5 mg DAILY PO 09/03/16 08:00 10/03/16 08:59 09/05/16 07:50 12.5 MG Oxycodone/ Acetaminophen (Percocet 5-325mg Tab) 1 tab Q6H PRN PO 09/02/16 14:00 09/16/16 13:59 Pantoprazole Sodium (Protonix Tab) 40 mg DAILY PO 09/03/16 08:00 10/03/16 08:59 09/05/16 07:50 40 MG Propafenone HCl (Rythmol Tab) 150 mg Q8@0600,1400,2200 PO 09/02/16 16:00 10/02/16 15:59 09/05/16 06:13 150 MG Tamsulosin HCl (Flomax Cap) 0.4 mg DAILY PO 09/03/16 08:00 10/03/16 08:59 09/05/16 07:52 0.4 MG Thiamine HCl (Vitamin B-1 Tab) 100 mg DAILY PO 09/03/16 08:00 10/03/16 08:59 09/05/16 07:48 100 MG Cyanocobalamin (Vitamin B-12 Tab) 2,000 mcg DAILY PO 09/03/16 08:00 10/03/16 08:59 09/05/16 07:49 2,000 MCG Miscellaneous Information (Order Awaiting Action) 1 ea QS N/A 09/02/16 16:00 10/02/16 15:59 Mirtazapine (Remeron Solutab) 15 mg HS PO 09/02/16 21:00 10/02/16 20:59 09/04/16 21:12 15 MG Tiotropium Jackson (Spiriva Handihaler Inhaler) 1 puff QAM INH 09/03/16 09:00 10/03/16 08:59 09/05/16 07:45 1 PUFF Doxycycline Hyclate (Vibramycin Cap) 100 mg BID PO 09/03/16 21:00 09/10/16 20:59 09/05/16 07:49 100 MG Menthol (Nice Donna) 1 donna PRN PRN PO 09/03/16 23:45 10/03/16 23:44 09/03/16 23:59 1 DONNA Potassium Chloride (Klor-Con Tab) 40 meq DAILY PO 09/04/16 09:00 10/03/16 08:59 09/05/16 07:51 40 MEQ Ergocalciferol (Vitamin D Cap) 50,000 interunit Mo@0900 PO 09/04/16 09:00 10/04/16 08:59 09/04/16 07:59 50,000 INTERUNIT Cholecalciferol (Vitamin D Tab) 4,000 inter.unit QAM PO 09/05/16 09:00 10/05/16 08:59 09/05/16 07:51 4,000 INTER.UNIT Heparin Sodium (Porcine) (Heparin Sq 5000 Unit/0.5ml) 5,000 unit Q12 SQ 09/04/16 09:00 10/04/16 08:59 09/05/16 07:57 5,000 UNIT Methylprednisolone Sodium Succinate 40 mg/Syringe 0.64 ml @ 1.5 mls/min Q12H IV 09/04/16 16:00 10/04/16 15:59 09/05/16 04:14 1.5 MLS/MIN (Nancy Luong, ISABEL) Objective Vital Signs Date Time Temp Pulse Resp B/P (MAP) Pulse Ox O2 Delivery O2 Flow Rate FiO2 09/05/16 09:49 95 93 09/05/16 08:00 Nasal Cannula 3.0 09/05/16 07:15 64 18 96 Nasal Cannula 3.0 09/05/16 07:00 36.3 54 18 111/63 (79) 95 Room Air 09/05/16 04:00 Nasal Cannula 3.0 09/05/16 00:00 Nasal Cannula 3.0 09/04/16 23:39 36.6 85 18 106/65 (79) 90 Nasal Cannula 4.0 09/04/16 20:12 77 18 98 Nasal Cannula 4.0 09/04/16 20:08 92 Nasal Cannula 2.0 09/04/16 16:10 36.4 94 20 121/72 (88) 98 Nasal Cannula 4.0 09/04/16 16:10 92 Nasal Cannula 2.0 09/04/16 15:20 84 18 94 Nasal Cannula 4.0 09/04/16 13:52 101 160/88 (112) 09/04/16 12:00 Nasal Cannula 2.0 09/04/16 11:13 84 18 94 Nasal Cannula 4.0 (Nancy Luong ., PA-C) Physical Exam General Appearance: no apparent distress, + obese, + pertinent finding (3L O2 NC ) Eyes: normal inspection, PERRL ENT: hearing grossly normal Neck: supple Respiratory/Chest: no respiratory distress, no accessory muscle use, + decreased breath sounds (>at bilateral lung bases ), + wheezing (throughout all lung edge ) Cardiovascular: regular rate, rhythm Abdomen: normal bowel sounds, non tender, soft Extremities: no pedal edema, no calf tenderness Neurologic/Psychiatric: alert, normal mood/affect, oriented x 3 Skin: normal color, warm/dry, no rash (Nancy Luong ., PA-C) Laboratory Results Last 24 Hours Test 09/05/16 05:48 White Blood Count 6.81 K/uL Red Blood Count 3.64 M/uL Hemoglobin 10.8 g/dL Hematocrit 32.5 % Mean Corpuscular Volume 89.3 fL Mean Corpuscular Hemoglobin 29.7 pg Mean Corpuscular Hemoglobin Concent 33.2 g/dl RDW Standard Deviation 41.9 fL RDW Coefficient of Variation 13.0 % Platelet Count 137 K/uL Mean Platelet Volume 10.9 fL Activated Partial Thromboplast Time 27.2 SECONDS Partial Thromboplastin Ratio 1.0 Sodium Level 139 mmol/L Potassium Level 3.7 mmol/L Chloride Level 102 mmol/L Carbon Dioxide Level 30 mmol/L Anion Gap 7.0 mmol/L Blood Urea Nitrogen 37 mg/dl Creatinine 1.30 mg/dl Est Creatinine Clear Calc Drug Dose 57.9 ml/min Estimated GFR () 59.7 Estimated GFR (Non- 51.5 BUN/Creatinine Ratio 28.3 Random Glucose 143 mg/dl (Nancy Luong, PA-C) Assessment and Plan 81 y/o M with multiple medical complaints. Pt states that he has been SOB both at rest and with exertion. He states he has home O2, but is uncertain if he is supposed to be wearing it continuously and cannot really tell me if he does. Hypoxia, secondary to chronic respiratory failure/acute exacerbation of COPD/ emphysema- IMPROVING: - Admitted to [facility] for cardiac monitoring- ?episodes of a.fib vs MAT -- Transfer to med/surg on 09/05 - DuoNebs QID and Spiriva and Symbicort - IV Solu-Medrol 40 mg q8- will decrease to BID and continue to wean - O2 protocol, wean as tolerated- patient has home O2 but unsure of when to use/ L required - Doxycycline 100 mg BID (started on 09/03) Elevated troponin, likely secondary to demand ischemia from hypoxia and ARF: - Trended cardiac enzymes- peak trop 0.115 - ECHO- Grossly normal LV size, mild concentric LVH. Normal LV systolic function. LVEF 55-60%. No apparent regional wall motion abnormalities. RV not well visualized. Grossly normal size and function. No significant valvular pathology. - Consulted cardiology, appreciate recommendations- no further workup/ intervention at this time Paroxysmal a.fib- currently NSR: - Continue Metoprolol 12.5 mg daily, Rythmol 150 mg TID - Cardiology recommending Eliquis- discussed w/ patient, unsure if wants to start this medication -- Spoke w/ cardiology- recommend anticoagulation but suggest f/u w/ his psychotherapist counselor first and they can start anticoagulation- appointment scheduled for September 15 Chronic diastolic CHF: Metolazone 2.5 mg on Tu/Sun, Lasix 40 mg daily ARF, baseline Cr. ~1.5- IMPROVING: Treated w/ IVF Vitamin D deficiency at 7.3- start 50,000 IU weekly and 4,000 IU daily Hypokalemia- RESOLVED: Replaced in IVF and 40 mEq KCL daily HTN- CONTROLLED: Continue Metoprolol as above Dementia: Aricept 5 mg HS, Remeron 15 mg HS Metastatic prostate cancer w/ bone mets- no chemo or radiation: - Continue Tamsulosin 0.4 mg HS and Finasteride 5 mg daily, Casodex 50 mg daily - Follows w/ Dr. Olsen and Dr. Bowen -- Had f/u w/ Dr. Olsen on 09/01- requesting bone scan- will complete while inpatient due to patient/family concerns/difficulty of completing outpatient. ?Underlying depression during screening: Recommend following closely w/ PCP Polypharmacy: - Patient very discourage w/ all of the medications he has to take- will d/c vitamins and Protonix - Will ensure proper medication list is given to [facility] to ensure patient is taking correct medications at home GI Prophylaxis: Protonix, Maalox PRN, IV Zofran PRN, Colace and/or Milk of Mag PRN DVT prophylaxis: Heparin Code Status: LEVEL I, FULL Dispo: Lives at home w/ ex-- discharge to home w/ [facility] likely tomorrow- social services analyst consulted - PT/OT evaluations- discharge to home - Scheduled f/u's w/ PCP on September 11 and Cardiology on September 15 (Nancy Luong, PA-C) I personally examined pt and verified all villasenor points w Virgie Luong PA-C feeling better just not well enough yet - still coughing up a lot of sputum. discussed meds - after discussing multiple med lists from different docs in different systems and my count of far less meds than he notes to be on at home - agrees that he probably has a lot of duplication/overlap/etc --> wants to have home nursing review. also OK w stopping claritin, protonix, and vitamins. not a heavy drinker, notes cardiology has him on thiamine although not sure why - notes he can stop and then discuss w cardiology as he as an appointment next month. ROS otherwise negative except for as above vitalsnoted nad breathing unlabored, 88-89% on RA (had O2 on forehead when i entered room) -COPD likely severe w acute exacerbation - improving. doxy,steroids, nebs, spiriva, symbicort. anticipate home 1-2 days -polypharmacy -prostate ca - bone scan -otherwise as above (Andrea Asencio D.O.)
[2016-09-05 13:16] LABS: CALCIUM 7.8 mg/dl (8.5-10.1)
--- NOTE | 2016-09-05 15:15 | DIAGNOSTIC IMAGING REPORT ---
WHOLE-BODY NUCLEAR BONE SCAN CLINICAL HISTORY: Metastatic prostate cancer. COMPARISON STUDY: Nuclear bone scan dated 02/08/2016. CT scan of the chest dated 03/16/2016. PET/CT dated 12/09/2015. TECHNIQUE: Three hours following the IV administration of 26 mCi of technetium 99m MDP, whole body nuclear bone scan was performed in the anterior and posterior projections. FINDINGS: Again seen is intense abnormal uptake within the upper thoracic spine, which is similar to 02/08/2016 examination and is consistent with spinal metastatic disease. Smaller foci of abnormal activity are seen in the upper thoracic spine. Activity within the left transverse process of L5, the left iliac wing, and the right ischium are noted also typical appearance for bony metastatic disease. Multiple rib lesions are identified. Activity within the left posterior 9th rib is likely related to metastatic disease with a pathologic fracture. 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 Typically degenerative uptake is identified shoulders, ankles, and feet. There is expected excreted activity within the renal collecting system and bladder. IMPRESSION: Findings are consistent with multifocal osseous metastatic disease. This is overall similar in appearance to the 02/08/2016 examination. Electronically signed by: Jacob Rivera M.D. 09/05/2016 3:14 PM Dictated Date/Time: 09/05/2016 3:07 PM
[2016-09-05] MEDS: DONEPEZIL HCL 5 MG TAB PO SCH (21:11)
[2016-09-05] MEDS: MIRTAZAPINE SOLTAB 15 MG PO SCH (21:13)
[2016-09-06] MEDS: PROPAFENONE HCL 150 MG TAB PO SCH (05:24)
[2016-09-06] MEDS: METHYLPREDNISOLONE IV 40 MG in SYRINGE 0 ML IV SCH (05:24)
[2016-09-06 06:32] LABS: BUN/CREATININE RATIO 27.9 (10-20); CALCIUM 7.5 mg/dl (8.5-10.1); CREATININE 1.3 mg/dl (0.60-1.40); POTASSIUM 3.7 mmol/L (3.5-5.1)
[2016-09-06 07:31] VITALS: PULSE 78; O2SAT 97
[2016-09-06] MEDS: ALBUT/IPRATROP 3MG/0.5MG NEB 3 ML VIAL INH SCH ×2 (07:31→11:24)
[2016-09-06 07:41] VITALS: BP 125/81; PULSE 90; TEMP 36.4; O2SAT 94
[2016-09-06] MEDS: BUDESONIDE/FORMOTEROL FUMARATE 160/4.5 60 PUFFS/INHALER INH SCH (08:34)
[2016-09-06] MEDS: TIOTROPIUM BROMIDE 5 PUFF/90 MCG INH INH SCH (08:36)
[2016-09-06] MEDS: POTASSIUM CHLORIDE 20 MEQ TABCR PO SCH (08:37)
[2016-09-06] MEDS: TAMSULOSIN HCL 0.4 MG CAP PO SCH (08:37)
[2016-09-06] MEDS: FLUTICASONE PROPIONATE NA SPR 16 GM BTL NAE SCH (08:37)
[2016-09-06] MEDS: FUROSEMIDE 40 MG TAB PO SCH (08:38)
[2016-09-06] MEDS: FINASTERIDE 5 MG TAB PO SCH (08:38)
[2016-09-06] MEDS: METOPROLOL SUCC 25MG EXT REL TAB PO SCH (08:38)
[2016-09-06] MEDS: DOXYCYCLINE HYCLATE 100 MG CAP PO SCH (08:38)
[2016-09-06] MEDS: CYANOCOBALAMIN 500 MCG TAB (VIT B-12) PO SCH (08:38)
[2016-09-06] MEDS: CHOLECALCIFEROL 1000 INTER.UNIT TAB PO SCH (08:39)
[2016-09-06] MEDS: HEPARIN SOD 5000 UNIT/0.5 ML CARP SQ SCH (08:47)
[2016-09-06] MEDS: BICALUTAMIDE 50 MG TAB PO SCH (08:47)
[2016-09-06] MEDS ORDERED: PRED10TA PO (09:35)
[2016-09-06] MEDS ORDERED: MCRK20 PO (09:35)
[2016-09-06] MEDS ORDERED: DXY100 PO ×2 (09:35→11:03)
[2016-09-06] MEDS ORDERED: SPRIN INH (09:35)
--- NOTE | 2016-09-06 09:47 | Discharge Instructions ---
Discharge Instructions Date of Service Sep 06, 2016. Admission Reason for Admission: Copd Exacerbation Discharge Discharge Diagnosis / Problem: COPD exacerbation Discharge Goals Goal(s): Decrease discomfort, Improve function, Increase independence, Improve disease control, Learn about illness, Diagnostic testing, Therapeutic intervention, Prevent Disease Progression Activity Recommendations Activity Limitations: resume your previous activity . Instructions / Follow-Up Instructions / Follow-Up NEW/CHANGED medications: 1. Doxycycline 100 mg by mouth twice per day until prescription is complete- begin this medication tonight (09/06) 2. Potassium supplement was INCREASED to 40 mEq by mouth once per day- begin this medication on 09/07 3. Prednisone taper- 40 mg by mouth x2 days (09/07 and 09/08), then 30 mg by mouth x2 days (09/09 and 09/10), then 20 mg by mouth x2 days (09/11 and 09/12), then 10 mg by mouth x2 days (09/13 and 09/14), then 5 mg by mouth x2 days (09/15 and 09/16). 4. Spiriva inhaler 2 puffs twice per day 5. Vitamin D supplement 4,000 IU by mouth daily STOPPED medications- we have stopped this medications because you have been unhappy about the amounts of medications you take: 1. Stop Protonix 2. Stop Thiamine supplement- PLEASE DISCUSS THIS WITH CARDIOLOGY AT FOLLOW- UP 3. Stop Claritin 4. You may discuss with your PCP about discontinuing b12 supplement YOU REQUIRE 2L OXYGEN SUPPLEMENT AT ALL TIMES- it is very important you wear your oxygen at home to prevent low oxygen levels If you do not already have a home pulse ox machine, please obtain one. You are encouraged to periodically get an oxygen level read while at rest and with activity- your goal oxygen level is 92% or greater. Resume all other regular home medications as prescribed Give your medication list to your home nurse so they can ensure you are taking the proper medications and taking them correctly FOLLOW-UPS: Please follow-up with your PCP September 11 at 11:00 AM Please follow-up with Cardiology September 15 at 2:20 PM Please follow-up/keep all of your subspecialty appointments Current Hospital Diet Patient's current hospital diet: AHA Diet (Heart Healthy) Discharge Diet Recommended Diet: AHA Diet (Heart Healthy) Procedures Procedures Performed: Chest x-ray Bone scan Pending Studies Studies pending at discharge: no Laboratory Results Last 24 Hours Test 09/06/16 05:31 Activated Partial Thromboplast Time 26.1 SECONDS Partial Thromboplastin Ratio 1.0 Sodium Level 138 mmol/L Potassium Level 3.7 mmol/L Chloride Level 100 mmol/L Carbon Dioxide Level 31 mmol/L Anion Gap 7.0 mmol/L Blood Urea Nitrogen 36 mg/dl Creatinine 1.30 mg/dl Est Creatinine Clear Calc Drug Dose 57.9 ml/min Estimated GFR () 59.7 Estimated GFR (Non- 51.5 BUN/Creatinine Ratio 27.9 Random Glucose 170 mg/dl Calcium Level 7.5 mg/dl Hemoglobin A1c Test 08/06/16 05:15 Range/Units Estimated Average Glucose 134 mg/dl Hemoglobin A1c 6.3 H 4.5-5.6 % Medical Emergencies . Who to Call and When: Medical Emergencies: If at any time you feel your situation is an emergency, please call 911 immediately. . Non-Emergent Contact Non-Emergency issues call your: Primary Care Provider . . "Provider Documentation" section prepared by Nancy Luong. . VTE Core Measure Inpt VTE Proph given/why not?: Unfractionated heparin SQ
[2016-09-06] MEDS ORDERED: VTMD1000 PO (10:00)
--- NOTE | 2016-09-06 10:10 | Discharge Summary ---
Discharge Summary Date of Service Sep 06, 2016. (Nancy Luong, ISABEL) Discharge Summary Admission Date: Sep 02, 2016 at 14:16 Discharge Date: Sep 06, 2016 Discharge Disposition: Home with services Principal Diagnosis: COPD exacerbation Problems/Secondary Diagnoses: Hypoxia, secondary to chronic respiratory failure/acute exacerbation of COPD/ emphysema Elevated troponin, likely secondary to demand ischemia from hypoxia and ARF Paroxysmal a.fib Chronic diastolic CHF ARF Vitamin D deficiency Hypokalemia HTN Dementia Metastatic prostate cancer w/ bone mets- no chemo or radiation ?Underlying depression during screening Polypharmacy Procedures: SINGLE VIEW CHEST CLINICAL HISTORY: Generalized weakness. FINDINGS: An AP, portable, upright chest radiograph is correlated with chest CT dated 03/16/2016. The examination is severely degraded by portable technique, apical lordotic positioning, motion artifact, and patient rotation. The heart is enlarged and there is atherosclerotic calcification of the thoracic aorta. Advanced emphysema and chronic interstitial thickening are similar to previous. There is bibasilar scarring versus atelectasis. No airspace consolidation is seen typical for pneumonia and there is no large pleural effusion. No pneumothorax is seen. The skeletal structures are osteopenic. The bony thorax is grossly intact. A right shoulder arthroplasty is in place. IMPRESSION: Cardiomegaly and severe emphysema. No acute cardiopulmonary abnormality is seen. Electronically signed by: Jacob Rivera M.D. 09/02/2016 11:50 AM Dictated Date/Time: 09/02/2016 11:47 AM The status of this report is Signed. Draft = Not yet reviewed or approved by Radiologist. Signed = Reviewed and approved by Radiologist. WHOLE-BODY NUCLEAR BONE SCAN CLINICAL HISTORY: Metastatic prostate cancer. COMPARISON STUDY: Nuclear bone scan dated 02/08/2016. CT scan of the chest dated 03/16/2016. PET/CT dated 12/09/2015. TECHNIQUE: Three hours following the IV administration of 26 mCi of technetium 99m MDP, whole body nuclear bone scan was performed in the anterior and posterior projections. FINDINGS: Again seen is intense abnormal uptake within the upper thoracic spine, which is similar to 02/08/2016 examination and is consistent with spinal metastatic disease. Smaller foci of abnormal activity are seen in the upper thoracic spine. Activity within the left transverse process of L5, the left iliac wing, and the right ischium are noted also typical appearance for bony metastatic disease. Multiple rib lesions are identified. Activity within the left posterior 9th rib is likely related to metastatic disease with a pathologic fracture. 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 Typically degenerative uptake is identified shoulders, ankles, and feet. There is expected excreted activity within the renal collecting system and bladder. IMPRESSION: Findings are consistent with multifocal osseous metastatic disease. This is overall similar in appearance to the 02/08/2016 examination. Electronically signed by: Jacob Rivera M.D. 09/05/2016 3:14 PM Dictated Date/Time: 09/05/2016 3:07 PM The status of this report is Signed. Draft = Not yet reviewed or approved by Radiologist. Signed = Reviewed and approved by Radiologist. ECHOCARDIOGRAM: Interpretation Summary * Name: MICHAEL GARCIA Study Date: 09/03/2016 06:13 AM BP: 98/52 mmHg * Patient Location: [facility]\\S\\N285\\S\\2 HR: 68 * : 1935 (M/d/yyyy) Gender: Male Height: 69 in * Age: 81 yrs Ethnicity: [place] Weight: 253 lb * Ordering Physician: Ninfa Yadav * Performed By: Claudine Olsen * * Reason For Study: ELEVATED TROP * BSA: 2.3 m2 * -- Conclusions -- * 1. Technically limited study despite use of Definity ultrasound contrast. * 2. Grossly normal LV size, mild concentric LVH. * 3. Normal LV systolic function. LVEF 55-60%. No apparent regional wall motion abnormalities. * 4. RV not well visualized. Grossly normal size and function. * 5. No significant valvular pathology. * 6. No prior studies for comparison. Procedure Details * A complete two-dimensional transthoracic echocardiogram was performed (2D, M-mode, Doppler and color flow Doppler). * The study was technically difficult. * There were technical limitations due to patient'sPoor acoustic windows secondary to severe lung disease. * A contrast injection of Definity was performed to improve assessment of LV function. * Contrast was injected into an intravenous site in the left arm. * One vial of Definity ultrasound contrast was diluted in normal saline to a total volume of 10 ml. A total of '4' ml of solution was administered during imaging. * Lot # [id number] of Definity utilized for procedure. * Expiration date 09/26. Left Ventricle * The left ventricle is grossly normal size. * There is mild concentric left ventricular hypertrophy. * Ejection Fraction = 55-60%. * No regional wall motion abnormalities noted. Right Ventricle * The right ventricle is not well visualized. * The right ventricular systolic function is qualitatively normal. Atria * The left atrium is not well visualized. * Right atrium not well visualized. * Linear, mobile, echolucent structure noted in RA on subcostal views. Unable to visualize in other views. Suspect prominent eustachian valve * No ASD detected; PFO is not assessed. Mitral Valve * The mitral valve is not well visualized. * Significant mitral regurgitation is absent. Tricuspid Valve * The tricuspid valve is not well visualized. * There is trace tricuspid regurgitation. Aortic Valve * The aortic valve is not well visualized. * No hemodynamically significant valvular aortic stenosis. * There is no significant aortic regurgitation. Pulmonic Valve * The pulmonary valve is inadequately visualized, but the Doppler data is adequate for interpretation. * Pulmonic stenosis is absent. * There is no significant pulmonary regurgitation. Great Vessels * The aortic root and proximal ascending aorta are normal sized. Pericardium/Pleural * There is no pericardial effusion. Great Vessels * Normal inferior vena cava size and collapsability with sniff indicates a normal right atrial pressure of 3 mmHg Left Ventricular Diastolic Function * Diastolic dysfunction MMode 2D Measurements and Calculations IVSd 1.3 cm IVSs 2.2 cm LVIDd 3.8 cm LVIDs 2.5 cm LVPWd 1.6 cm LVPWs 1.8 cm IVS/LVPW 0.80 FS 34.6 % EDV(Teich) 61.7 ml ESV(Teich) 21.9 ml EF(Teich) 64.5 % EDV(cubed) 54.5 ml ESV(cubed) 15.3 ml EF(cubed) 72.0 % % IVS thick 68.1 % % LVPW thick 13.6 % LV mass(C)d 204.8 grams LV mass(C)dI 89.7 grams/m\\S\\2 LV mass(C)s 214.2 grams LV mass(C)sI 93.8 grams/m\\S\\2 CO(Teich) 2.9 l/min CI(Teich) 1.3 l/min/m\\S\\2 SV(Teich) 39.8 ml SI(Teich) 17.4 ml/m\\S\\2 CO(cubed) 2.9 l/min CI(cubed) 1.3 l/min/m\\S\\2 SV(cubed) 39.3 ml SI(cubed) 17.2 ml/m\\S\\2 ACS 1.2 cm asc Aorta Diam 3.8 cm LVAd ap4 31.2 cm\\S\\2 LVLd ap4 8.0 cm EDV(MOD-sp4) 100.0 ml LVAs ap4 18.1 cm\\S\\2 LVLs ap4 6.8 cm ESV(MOD-sp4) 38.9 ml EF(MOD-sp4) 61.1 % LVAd ap2 32.9 cm\\S\\2 LVLd ap2 7.8 cm EDV(MOD-sp2) 113.0 ml LVAs ap2 19.9 cm\\S\\2 LVLs ap2 7.4 cm ESV(MOD-sp2) 43.8 ml EF(MOD-sp2) 61.2 % CO(MOD-sp4) 4.5 l/min CI(MOD-sp4) 2.0 l/min/m\\S\\2 SV(MOD-sp4) 61.1 ml SI(MOD-sp4) 26.8 ml/m\\S\\2 CO(MOD-sp2) 5.1 l/min CI(MOD-sp2) 2.2 l/min/m\\S\\2 SV(MOD-sp2) 69.2 ml SI(MOD-sp2) 30.3 ml/m\\S\\2 Doppler Measurements and Calculations MV E max adalberto 70.3 cm/sec MV A max adalberto 64.5 cm/sec MV E/A 1.1 MV dec time 0.23 sec Ao V2 max 137.7 cm/sec Ao max PG 7.6 mmHg Ao max PG (full) 3.3 mmHg LV V1 max PG 4.3 mmHg LV V1 max 103.8 cm/sec PA V2 max 56.3 cm/sec PA max PG 1.3 mmHg TR max adalberto 250.2 cm/sec Consultations: Cardiology (Nancy Luong, COLLEENC) Medication Reconciliation New Medications: Prednisone Tab (Prednisone) 10 Mg Tab 10 MG PO UD for 10 Days, #21 TAB 40 mg x2 days, 30 mg x2 days, 20 mg x2 days, 10 mg x2 days, 5 mg x2 days Cholecalciferol (Vitamin D3) 1,000 Inter.unit Tab 4000 INTER.UNIT PO QAM for 30 Days, #120 TAB Doxycycline Hyclate (Doxycycline Hyclate) 100 Mg Cap 100 MG PO BID for 5 Days, #10 CAP Potassium Chloride (Klor-Con M20) 20 Meq Tabcr 40 MEQ PO DAILY for 30 Days, #60 TABS Tiotropium [place] (Spiriva Handihaler) 5 Puff/90 Mcg Aerp 1 PUFF INH QAM, #1 INHALER Continued Medications: Albuterol Sulfate (Proventil Hfa) 108 Mcg/Act Aer 1 PUFF INH QID PRN for Shortness of Breath Atorvastatin (Lipitor) 10 Mg Tab 10 MG PO HS for 30 Days, TAB 5 Refills Bicalutamide (Casodex) 50 Mg Tab 50 MG PO DAILY Budesonide/Formoterol Fumarate (Symbicort 160/4.5 Inhaler ) Aero 2 PUFFS INH BID, INHALER Cyanocobalamin (B-12) 1,000 Mcg Cap 2000 MCG PO DAILY Donepezil HCl (Aricept) 5 Mg Tab 5 MG PO HS for 30 Days, #30 TAB 5 Refills Finasteride (Proscar) 5 Mg Tab 5 MG PO DAILY, TAB Fluticasone Propionate (Nasal) (Flonase Allergy Relief) 50 Mcg/Act Spr 1 SPRAY LIZETH BID Furosemide (Lasix) 40 Mg Tab 40 MG PO DAILY, TAB Ipratropium-Albuterol (Duoneb) 3 Ml Nebu 1 TREATMENT INH Q6H PRN for SOB/Wheezing, INHA Magnesium Gluconate (Magnesium) Unknown Strength Tab 420 MG PO BID Metolazone (Zaroxolyn) 2.5 Mg Tab 2.5 MG PO 2XWK, TAB SUNDAY & SUNDAY Metoprolol Succ (Toprol Xl) (Toprol-Xl) 25 Mg Tabcr 12.5 MG PO DAILY, TAB Mirtazapine Soltab (Remeron Soltab) 15 Mg Soltab 15 MG PO HS, TAB Oxycodone/Acetaminophen 5MG/325MG (Percocet 5MG/325MG) Tab 1 TABLET PO Q6H PRN for Pain, #30 TAB Propafenone Hcl (Propafenone Hcl) 150 Mg Tab 150 MG PO TID Tamsulosin Hcl (Flomax) 0.4 Mg Cap 0.4 MG PO DAILY Discontinued Medications: Loratadine (Claritin) 10 Mg Tab 10 MG PO DAILY, TAB Pantoprazole (Protonix) 40 Mg Tab 40 MG PO DAILY, #30 TAB Potassium Ext Rel (Klor-Con) 20 Meq Tabcr 20 MEQ PO DAILY, TAB Thiamine Hcl (Vitamin B-1) 100 Mg Tab 100 MG PO DAILY, TAB Discharge Exam Review of Systems: Constitutional: No fever, No chills, No sweats, No weakness, No fatigue Respiratory: No cough, No shortness of breath, No hemoptysis Cardiovascular: No chest pain, No edema, No palpitations Abdomen: No pain, No nausea, No vomiting, No diarrhea, No constipation Musculoskeletal: No joint pain, No muscle pain, No swelling, No calf pain Genitourinary - Male: No hematuria, No dysuria Neurologic: No weakness, No numbness/tingling Psychiatric: No depression symptoms, No anxiety Hematologic / Lymphatic: No abnormal bleeding/bruising Integumentary: No rash, No itch, No new/changing skin lesions Physical Exam: General Appearance: no apparent distress, + obese, + pertinent finding (2L O2 NC ) Eyes: normal inspection, PERRL ENT: hearing grossly normal Neck: supple Respiratory/Chest: no respiratory distress, no accessory muscle use, + decreased breath sounds (bilateral lung bases ), + wheezing (slight expiratory wheeze noted ) Cardiovascular: regular rate, rhythm Abdomen / GI: normal bowel sounds, non tender, soft Extremities: no calf tenderness, no pedal edema Neurologic/Psychiatric: alert, normal mood/affect, oriented x 3 Skin: normal color, warm/dry, no rash (Nancy Luong, PA-C) Hospital Course H&P on admission: 81 y/o M with multiple medical complaints. Pt states that he has been SOB both at rest and with exertion. He states he has home O2, but is uncertain if he is supposed to be wearing it continuously and cannot really tell me if he does. [facility]" and "I was 89 or 87 without it", but he states that no one has f/u with him about the results. He had a neb and steroids in the ED and has not SOB at rest now, but states his breathing still feels tight. No chest pain with the episodes. Feeling improved s/p nebs. Pt states that he regularly has diarrhea, but it has been increased lately. He has abd cramping with the diarrhea episodes only, otherwise no abd pain. He has also had no appetite and decreased PO intake, which usually is not the case. No issues with urination. Pt denies fever, n/v, LE pain or swelling. Physical Exam Vital Signs Date Time Temp Pulse Resp B/P (MAP) Pulse Ox O2 Delivery O2 Flow Rate FiO2 09/02/16 13:00 102 20 103/69 94 Nasal Cannula 2.0 09/02/16 12:15 101 20 135/78 94 Nasal Cannula 2.0 09/02/16 11:45 100 24 124/80 93 Nasal Cannula 2.0 09/02/16 11:36 110 24 129/85 96 Nasal Cannula 2.0 09/02/16 11:19 Nasal Cannula 2.0 09/02/16 11:18 90 Room Air 09/02/16 11:06 126 09/02/16 11:03 91 Room Air 09/02/16 10:44 36.8 101 18 119/73 91 Room Air General Appearance: no apparent distress, + obese Head: normocephalic, atraumatic Eyes: normal inspection, sclerae normal Respiratory/Chest: no respiratory distress, + decreased breath sounds, + wheezing (diffuse, inspiratory and expiratory) Cardiovascular: regular rate, rhythm, no edema Abdomen/GI: non tender, soft Extremities/Musculoskelatal: no calf tenderness, no pedal edema Neurologic/Psych: alert, normal mood/affect Skin: normal color, warm/dry Hypoxia, secondary to chronic respiratory failure/acute exacerbation of COPD/ emphysema- IMPROVING: - Admitted to [facility] for cardiac monitoring- ?episodes of a.fib vs MAT -- Transfer to med/surg on 09/05 - DuoNebs QID and Spiriva and Symbicort - IV Solu-Medrol 40 mg q8- will decrease to BID and continue to wean- discharged w/ Prednisone taper x10 days - O2 protocol, wean as tolerated- patient has home O2 but unsure of when to use/ L required- walked w/ nursing staff, requires 2L O2 AT ALL TIMES - Doxycycline 100 mg BID (started on 09/03) x10 days Elevated troponin, likely secondary to demand ischemia from hypoxia and ARF: - Trended cardiac enzymes- peak trop 0.115 - ECHO- Grossly normal LV size, mild concentric LVH. Normal LV systolic function. LVEF 55-60%. No apparent regional wall motion abnormalities. RV not well visualized. Grossly normal size and function. No significant valvular pathology. - Consulted cardiology, appreciate recommendations- no further workup/ intervention at this time Paroxysmal a.fib- currently NSR: - Continue Metoprolol 12.5 mg daily, Rythmol 150 mg TID - Cardiology recommending Eliquis- discussed w/ patient, unsure if wants to start this medication -- Spoke w/ cardiology- recommend anticoagulation but suggest f/u w/ his patient case manager first and they can start anticoagulation- appointment scheduled for September 15 Chronic diastolic CHF: Metolazone 2.5 mg on /Sun, Lasix 40 mg daily ARF, baseline Cr. ~1.5- RESOLVED: Treated w/ IVF Vitamin D deficiency at 7.3- 4,000 IU daily Hypokalemia- RESOLVED: Replaced in IVF and 40 mEq KCL daily HTN- CONTROLLED: Continue Metoprolol as above Dementia: Aricept 5 mg HS, Remeron 15 mg HS Metastatic prostate cancer w/ bone mets- no chemo or radiation: - Continue Tamsulosin 0.4 mg HS and Finasteride 5 mg daily, Casodex 50 mg daily - Follows w/ Dr. Olsen and Dr. Bowen -- Had f/u w/ Dr. Olsen on 09/01- requesting bone scan- will complete while inpatient due to patient/family concerns/difficulty of completing outpatient. ?Underlying depression during screening: Recommend following closely w/ PCP Polypharmacy: - Patient very discourage w/ all of the medications he has to take- will d/c vitamins and Protonix -- Per patient, he needs b12- will continue for now but instructed patient to discuss w/ PCP about discontinuing vs continuing - Will ensure proper medication list is given to [facility] to ensure patient is taking correct medications at home GI Prophylaxis: Protonix, Maalox PRN, IV Zofran PRN, Colace and/or Milk of Mag PRN DVT prophylaxis: Heparin Code Status: LEVEL I, FULL Dispo: Discharge to home w/ [facility] - Scheduled f/u's w/ PCP on September 11 and Cardiology on September 15 - Asked nursing staff to ensure patient receives copy of medications - campground manager to ensure home nursing coming into the home within 24 hours to ensure proper medications Total Time Spent: Greater than 30 minutes This includes examination of the patient, discharge planning, medication reconciliation, and communication with other providers. (Nancy Luong, ISABEL) I personally examined pt and verified all villasenor points w T Ag HALL feeling better feels up to going home breathing improving feels like he's really making progress sinuses feel better as well discussed home nursing to review med list - to call me or dr jung with questions/discrepancies. all other ROS otherwise negative except for as above vitals noted nad breathing unlabored no pallor or icterus -severe COPD w chronic hypoxic respiratory failure - stable for home - added anticholinergic, reviewed need for daily spiriva/bid symbicort scheduled not prn , O2, get home pulse ox. ongoing PCP f/u -concern on polypharmacy - med list cut down as above, to d/w cardiology regarding thiamine (he relates that's who started) but hold for now. home nursing to review meds and ensure no duplicates /etc at home due to multiple providers/different systems/multiple med lists --> discussed taht any discrepancy should either go to PCP or in short term to me to clear up so that there's just PCP "quarterback" -otherwise as above (Andrea Asencio D.O.) Discharge Instructions Please refer to the electronic Patient Visit Report (Discharge Instructions) for additional information. (Nancy Luong PA-C) Follow-Up Please follow-up with your PCP September 11 Please follow-up with Cardiology September 15 Please follow-up/keep all of your subspecialty appointments (Nancy Luong PA-C) Additional Copies To Josué Jung D.O.
[2016-09-06 10:16] VITALS: BP 125/81; PULSE 90; TEMP 36.4; O2SAT 94
[2016-10-04] MEDS ORDERED: LEUP30IN3 IM (10:05)
== END 2016-09-06 11:31 | disposition home or self-care (01) | DRG 191 ==
LOC: C.EDB 10:41 → C.4E 14:16 → ENRESERV 14:18 → C.MED 16:25
PROVIDERS: ADMIT Family Medicine; ATTEND Family Medicine
DX: J44.1 Chronic obstructive pulmonary disease with (acute) exacerbation (principal); N17.9 Acute kidney failure, unspecified; I24.8 Other forms of acute ischemic heart disease; J96.11 Chronic respiratory failure with hypoxia; I50.32 Chronic diastolic (congestive) heart failure; I13.0 Hypertensive heart and chronic kidney disease with heart failure and stage 1 through stage 4 chronic kidney disease, or unspecified chronic kidney disease; C79.9 Secondary malignant neoplasm of unspecified site; I48.0 Paroxysmal atrial fibrillation; R19.7 Diarrhea, unspecified; E87.6 Hypokalemia; E83.51 Hypocalcemia; E55.9 Vitamin D deficiency, unspecified; F32.9 Major depressive disorder, single episode, unspecified; F03.90 Unspecified dementia, unspecified severity, without behavioral disturbance, psychotic disturbance, mood disturbance, and anxiety; C61 Malignant neoplasm of prostate; N18.9 Chronic kidney disease, unspecified; K21.9 Gastro-esophageal reflux disease without esophagitis; E66.9 Obesity, unspecified; Z51.81 Encounter for therapeutic drug level monitoring; Z79.899 Other long term (current) drug therapy; Z99.81 Dependence on supplemental oxygen; Z68.36 Body mass index [BMI] 36.0-36.9, adult; Z87.891 Personal history of nicotine dependence

== ENCOUNTER → 2016-11-06 | Outpatient (CLI) | payer BC ==
[~2016-11-06] MED LIST changes: -ADVIN25/60 INH; -ALBU2SYP9 INH; -ATOR10TA82 PO; +ATOR10TA88 PO; -CETI10TA84 PO; +CYAN1CAP3 PO; +DXY100 PO; +FLUT0.15 NAE; +LEUP30IN3 IM; +MAGN30TA4 PO; -MAGN400T6 PO; +MCRK20 PO; -METH1CHW PO; +METO2.5T PO; +MIRT15TA2 PO; +OPTIRAY 320 IV PRN; -PANT40TA PO; -POTA1POW PO; +PROP150T PO; +SPRIN INH; +VTMD1000 PO; -[UNRECOGNIZED DRUG - CODE] PO
--- NOTE | 2016-11-06 10:52 | DIAGNOSTIC IMAGING REPORT ---
ABD/PELVIS IV CONTRAST ONLY CLINICAL HISTORY: 81 years-old Male presenting with prostate cancer, bone metastases. TECHNIQUE: Multidetector CT of the abdomen and pelvis was performed after the administration of intravenous contrast. IV contrast: 92 mL of Optiray 320. A dose lowering technique was used consistent with the principles of ALARA (as low as reasonably achievable). COMPARISON: 06/24/2014. CT DOSE (mGy.cm): The estimated cumulative dose is 1470.17 mGy.cm. FINDINGS: Hvac Installation Technician topogram: Aortobiiliac stents. Lung bases: Extensive paraseptal emphysematous changes at the lung bases. This is similar to prior exam. Normal heart size. Aortic valve and artery calcification. No pericardial or pleural effusion. 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 No focal lesion. Patent hepatic vasculature. Biliary: No intrahepatic or extrahepatic biliary ductal dilatation. Gallbladder contains gallstones. Pancreas: Moderate parenchymal atrophy. Spleen: Normal. Adrenal glands: Calcification of the adrenal glands could suggest prior hemorrhage or infection. Kidneys and ureters: Cortical thinning greatest at the right upper pole. Few tiny hypodensities too small to characterize. No hydronephrosis. Normal ureters. Calcification of the origin of the right renal artery. Bladder: Incompletely evaluated secondary to underdistention. Pelvic organs: Prostate and seminal vesicles normal. Bowel: Payton colonic diverticulosis. Normal appendix. Appendicolith noted. No bowel obstruction. Small hiatal hernia. Peritoneal cavity: No free fluid or intraperitoneal gas. Vasculature: Aorta demonstrates an aortobiiliac stent graft across the infrarenal abdominal aortic aneurysm. Aneurysm sac measures 4.4 x 4.2 cm, previously 4.3 x 4.2 cm, not significant changed. No periaortic fat stranding to suggest rupture. The stent is grossly patent. Lymph nodes: No enlarged lymph nodes in the abdomen or pelvis. Abdominal wall: Small fat-containing ventral hernia in the left upper quadrant and in the periumbilical region. Fat-containing left inguinal hernia. Surgical clips noted over the bilateral common femoral region. No pseudoaneurysm. Musculoskeletal: Degenerative changes of the spine. Degenerative changes of the sacroiliac joints and pubic symphysis. Degenerative changes of the hips. Mixed lytic sclerotic lesions noted throughout the visualized skeleton. Lesions have been marked on the images. IMPRESSION: 1. Numerous mixed lytic sclerotic osseous lesions throughout the visualized portion of the skeleton. This consistent with osseous metastatic disease, notably increased from prior CT in 2015. The appearance of more widespread activity in comparison to most recent bone scan from 09/05/2016 representing limitation resolution of nuclear medicine bone scan versus progression of disease. 2. No lymphadenopathy. 3. Aortobiiliac stent grossly patent. No change in size of the infrarenal abdominal aortic aneurysm. 4. Multiple small fat-containing ventral hernias. 5. Stable appearance of the extensive paraseptal emphysematous changes at the lung bases. Electronically signed by: Baldemar Rucker M.D. 11/06/2016 10:51 AM Dictated Date/Time: 11/06/2016 10:40 AM
== END | disposition home or self-care (01) ==
LOC: C.CTS 09:43
PROVIDERS: ATTEND Urology
DX: C61 Malignant neoplasm of prostate (principal); C79.51 Secondary malignant neoplasm of bone; K43.9 Ventral hernia without obstruction or gangrene

== ENCOUNTER → 2016-12-04 | Outpatient (CLI) | payer BC ==
[~2016-12-04] MED LIST changes: -OPTIRAY 320 IV PRN
== END | disposition home or self-care (01) ==
LOC: C.LAB 15:32
PROVIDERS: ATTEND Urology
DX: C61 Malignant neoplasm of prostate (principal); C79.51 Secondary malignant neoplasm of bone; R97.20 Elevated prostate specific antigen [PSA]

== ENCOUNTER → 2017-05-15 | Outpatient (CLI) | payer BC ==
[~2017-05-15] MED LIST changes: +ATOR10TA82 PO; -ATOR10TA88 PO; -OXYC-57 PO
[2017-05-15 14:49] LABS: EOS % 1.1 %; HEMATOCRIT 41.8 % (42-52); HEMOGLOBIN 14.2 g/dL (14.0-18.0); LYMPH % 26.7 %; LYMPH ABS # 2.33 K/uL (1.2-3.4); MEAN CELL VOLUME 92.1 fL (80-100); MEAN CORPUSCULAR HEMOGLOBIN 31.3 pg (25-34); MEAN PLATELET VOLUME 11.7 fL (7.4-10.4); MONO % 14.9 %; NEUT % 56.2 %; NEUT ABS # 4.91 K/uL (1.4-6.5); PLATELET COUNT 146 K/uL (130-400); RED CELL DISTRIBUTION WIDTH CV 12.7 % (11.5-14.5); RED CELL DISTRIBUTION WIDTH SD 42.5 fL (36.4-46.3); WHITE BLOOD COUNT 8.74 K/uL (4.8-10.8)
[2017-05-15 15:24] LABS: ALBUMIN 3.7 gm/dl (3.4-5.0); ALT/SGPT 19 U/L (12-78); AST/SGOT 11 U/L (15-37); BLOOD UREA NITROGEN 43 mg/dl (7-18); CALCIUM 9.5 mg/dl (8.5-10.1); CARBON DIOXIDE 35 mmol/L (21-32); CREATININE 1.65 mg/dl (0.60-1.40); GLUCOSE 138 mg/dl (70-99); POTASSIUM 3.4 mmol/L (3.5-5.1); SODIUM 138 mmol/L (136-145)
[2017-05-15 15:29] LABS: ALKALINE PHOSPHATASE 79 U/L (45-117); TOTAL PROTEIN 7.6 gm/dl (6.4-8.2)
== END | disposition home or self-care (01) ==
LOC: C.LAB 13:17
PROVIDERS: ATTEND Internal Medicine Hematology & Oncology
DX: C61 Malignant neoplasm of prostate (principal)